=== PATIENT | female | born 1960 | race Caucasian/White ===

== ENCOUNTER 2016-12-09 11:30 | Inpatient (IN) | payer MEDICARE, MEDICAID ==
[2016-12-09 11:56] LABS: Oxyhemoglobin 90.7 % (94.0-97.0); Sodium 139 mmol/L (135-148)
[2016-12-09 11:57] LABS: Modified Allen's Test POSITIVE; Vent NO
[2016-12-09 11:58] LABS: Mode RA
[2016-12-09] MEDS ORDERED: Lorazepam 2 MG/ML VIAL ONE ×2 (12:02→13:18)
[2016-12-09 12:12] LABS: Bilirubin Negative (Negative); Blood, Urine Negative (Negative); Glucose, Urine (Dipstick) Negative (Negative); Ketone, Urine Negative (Negative); Nitrite Negative (Negative); Protein, Urine (Dipstick) 300 mg/dL (Neg-Trace); Urobilinogen 0.2 mg/dL (0.2-1.0)
[2016-12-09 12:14] LABS: Bacteria/HPF None Seen HPF (None Seen); Hyaline Casts/LPF 0-3 HYALINE CAST LPF (0-3 Hyaline); RBC/HPF 0-3 HPF (0-3); Squamous Epithelial 0-3 HPF (0-3); WBC/HPF None Seen HPF (0-3)
[2016-12-09 12:15] LABS: PTT 27.6 SEC (22.9-36.1)
--- NOTE | 2016-12-09 12:18 | RAD ---
SINGLE VIEW OF THE CHEST: Comparison: 10-16-16 History: Seizures, diabetes, hypertension, congestive heart failure, CVA. Altered mental status. FINDINGS: Single view of the chest shows a normal sized cardiomediastinal silhouette. Evaluation of the lower right thorax is limited as the patient's hand overlies the chest. There is no evidence of consolidat ion, mass, or pleural effusion. A cardiac monitoring device projects over the upper chest. IMPRESSION: No evidence of acute cardiopulmonary disease. POS: [facility]
[2016-12-09 12:19] LABS: Hematocrit 39.3 % (36.0-47.0); Mean Platelet Volume 7.3 fL (7.4-10.4); Red Blood Cell (RBC) Count 4.22 mill/uL (4.20-5.40); White Blood Cell (WBC) Count 24.5 thou/uL (4.8-10.8)
[2016-12-09 12:21] LABS: Amphetamine Not Detected (NotDetected); Methadone Not Detected (NotDetected); Methamphetamine Not Detected (NotDetected)
[2016-12-09 12:29] LABS: Lactic Acid - Sepsis 1.9 mmol/L (0.5-2.2)
[2016-12-09 12:34] LABS: Band 9 % (5-11); Neutrophil 82 % (42-75)
[2016-12-09 12:36] LABS: CK (CPK) 28 U/L (29-168); Lipase 17 U/L (8-78)
[2016-12-09 12:40] LABS: Troponin I Less than 0.010 ng/mL (< 0.028)
[2016-12-09 12:43] LABS: ALT (SGPT) 7 U/L (8-55); AST (SGOT) 12 U/L (5-34); Acetaminophen Less than 6.0 mcg/mL (10.0-30.0); Alkaline Phosphatase 60 U/L (40-150); Anion Gap 14 mmol/L (10-20); BUN (Urea Nitrogen) 39 mg/dL (9.8-20.1); Bilirubin, Total 0.3 mg/dL (0.2-1.2); Calc. Creatinine Clearance 0 mL/min (70-130); Calcium 9.9 mg/dL (7.8-10.44); Carbon Dioxide 29 mmol/L (22-29); Chloride 100 mmol/L (98-107); Estimated GFR-MDRD 58; Globulin 3.6 g/dL (2.4-3.5); Protein, Total 7.2 g/dL (6.0-8.3); Salicylate Less than 8.0 mg/dL (15.0-30.0)
--- NOTE | 2016-12-09 12:58 | CT ---
CT BRAIN WITHOUT CONTRAST: Date: 12/09/16 HISTORY: Altered mental status. FINDINGS: Comparison made with exam of 11/03/16. A small area of encephalomalacia in the posteromedial aspect of the left parietal lobe is again seen likely due to old infarction. No evidence of acute infarct, hemorrhage, midline shift, or abnormal extra-axial fluid collections are noted. The ventricular size is stable and the basilar cisterns are patent. The bony calvarium is intact. The visualized paranasal sinuses are well aerated. IMPRESSION: No CT evidence of acute intracranial process. POS: [facility]
[2016-12-09] MEDS ORDERED: Fosphenytoin Sodium 1,500 MG in Sodium Chloride 0.9% 100 ML IVPB SCH (13:30)
[2016-12-09] MEDS ORDERED: Dextrose 50% Abboject 50 ML SYRINGE ONE (13:55)
[2016-12-09] MEDS ORDERED: Dextrose 50% Abboject 50 ML SYRINGE SLOW IVP PRN (14:56)
[2016-12-09] MEDS ORDERED: Milk Of Magnesia 30 ML UDCUP PO PRN (14:56)
[2016-12-09] MEDS ORDERED: Ondansetron ODT 4 MG TAB PO PRN (14:56)
[2016-12-09] MEDS ORDERED: Senokot 8.6 MG TAB PO PRN (14:56)
[2016-12-09] MEDS ORDERED: Dextrose 5% in Water 1,000 ML IV PRN (14:56)
[2016-12-09] MEDS ORDERED: Acetaminophen 325 MG TAB PO PRN (14:56)
[2016-12-09] MEDS ORDERED: Calcium Carbonate 500 MG ChewTAB PO PRN (14:56)
[2016-12-09] MEDS ORDERED: Loratadine 10 MG TAB PO PRN (14:56)
[2016-12-09] MEDS ORDERED: Diabetic Tussin 200 MG/10 ML UDCUP PO PRN (14:56)
[2016-12-09] MEDS ORDERED: Mag-Al 1200 mg/1200 mg/30 ML UDCUP PO PRN (14:56)
[2016-12-09] MEDS ORDERED: Ondansetron HCl/PF 4 MG/2 ML Vial IVP PRN (14:56)
[2016-12-09] MEDS ORDERED: Nitroglycerin 0.4 MG TAB (25 Tab Bottle) SL PRN (14:56)
[2016-12-09] MEDS ORDERED: Eucerin (Mineral Oil/Petrolatum,White) 30 gm Jar TOP PRN (14:56)
[2016-12-09] MEDS ORDERED: Sodium Chloride 0.65% Nasal 44 ML BOT EA NARE PRN (14:56)
[2016-12-09] MEDS ORDERED: Loperamide HCl 2 MG CAP PO PRN (14:56)
--- NOTE | 2016-12-09 15:12 | HP ---
PRIMARY CARE PHYSICIAN: Shikha Lennon, Family Nurse Practitioner. REASON FOR ADMISSION: Acute metabolic encephalopathy. HISTORY OF PRESENT ILLNESS: A 56-year-old female who has multiple medical problems including diabet es type 2 on insulin, hypertension, history of CVA and seizure disorder, who is appearing older than her stated age, who was brought to the emergency room for altered mental status. This patient is not able to provide any history at this point because she is completely altered, but her daughter who is present at bedside, who provided history. The patient lives with her daughter and she reported to me that last night her blood sugar was fine and it was a little bit on the higher side around 200 number and she gave her regular dose of insuli n, which she normally takes during night time. Before bedtime around 11:00, her blood sugar was sti ll above 200. This morning when patient's daughter woke up and she went to patient's room to check on her, she was completely unresponsive. Her body was cold and she was not responsive and that is w hy she called the paramedics. Paramedics came to her home and her blood sugar was initially 49 and it dropped to 20. Paramedics t ried to get IV access, but her IV access was not possible and that is why they did intraosseous in h er left leg and patient was given D50. Subsequently, patient was initially planned to go to [facility] Emergency Room, but as paramedics suspected seizure type of activity and maybe stroke and that is why they lifeline to our emergency room. In our emergency room, patient was hypothermic. Her temperature was 91.5, required Kimber Hugger. Amadou mendez was hypertensive in the emergency room. She was completely encephalopathic. She was opening eyes and she was clenching her teeth and she was keeping her both hands tightly closed without any g eneralized tonic-clonic activity. Patient was also found with leukocytosis and there was concern of underlying sepsis and that is why hendrickson culture was done and the patient was started on broad spectru m antibiotic therapy. Here in the emergency room, the patient is more hypertensive. Her blood suga r is stabilized. At this point, the patient is being admitted to IMCU for close monitoring. PAST MEDICAL HISTORY: Hypertension, dyslipidemia, diabetes type 2, insulin requiring, history of se izure disorder on Keppra, history of CVA with left internal capsular infarct, osteoarthritis, diabet ic neuropathy on high dose of Neurontin therapy, COPD, tobacco abuse disorder, questionable history of CHF, history of supraventricular tachycardia required ablation. PAST SURGICAL HISTORY: Bilateral carotid artery surgery, hysterectomy, uterus tear repair, bladder tuck, appendicectomy, , ablation for SVT, event monitor recorder placement on left chest wa ll. PAST PSYCHIATRIC HISTORY: Anxiety, depression. SOCIAL HISTORY: The patient lives with her daughter. She smokes about 1 pack per day. She denies any alcohol or other illicit drug abuse. She is able to ambulate by herself and able to do routine activity. FAMILY HISTORY: No strong family history of premature coronary artery disease, stroke or cancer. D iabetes, hypertension, and COPD runs among several family members. ALLERGIES: MORPHINE. CURRENT HOME MEDICATIONS: TriCor 145 mg p.o. daily, metformin 500 mg p.o. b.i.d., lisinopril 5 mg p .o. daily, Plavix 75 mg p.o. daily, Lasix 20 mg p.o. as needed, gabapentin 600 mg 3 times daily, Dil antin 100 mg 2 tablets in the morning, one tablet in the noon, and 2 tablets at bedtime, Symbicort 1 puff inhalation b.i.d. REVIEW OF SYSTEMS: All review of systems tried to review with the patient, but unable to review bec ause of encephalopathy. PHYSICAL EXAMINATION: VITAL SIGNS: Currently, blood pressure 188/74, pulse 98, respiratory rate 26, temperature 98.4 and saturation 98% on room air. Weight 81.6 kilograms. GENERAL: Patient is currently arousable. She awakes she opens her high, but she is not following a ny command. She is breathing on room air and saturating normal. She is not in respiratory distress . HEAD: Normocephalic, atraumatic. EYES: Pupils round, reactive to light. Extraocular muscle intact. ENT: Oropharynx within normal limits. No tongue bite. Moist mucous membranes. No oral lesions. No pharyngeal erythema, no exudate. NECK: Supple. No meningeal signs of irritation, no JVD, no thyromegaly, no carotid bruits. LUNGS: Clear to auscultation without any rhonchi or rales. CARDIAC: S1, S2 regular without any murmur. ABDOMEN: Obesity present. Bowel sounds present. Nontender, nondistended. No organomegaly, no mas s, no suprapubic tenderness. BACK: Unremarkable. No CVA tenderness. EXTREMITIES: Upper extremity: Patient does have tremors in both upper extremities. Does not look like that is seizure type of activity. Passive movement of all joints are normal. Lower extremity, no edema. Good peripheral pulsation. Intraosseous IV access in left leg. NEUROLOGIC: The patient follows commands. She is encephalopathic, so detailed neurologic examinati on is not possible. SKIN: No skin rash. PSYCHIATRIC: Unable to assess at this point. HEMATOLOGICAL SYSTEM: No lymphadenopathy. SIGNIFICANT LABS AND IMAGIN. EKG showing sinus tachycardia. CT brain based on my review, no acute intracranial process, old left infarct noted. 2. CBC: WBC 24.5, hemoglobin 12.7, platelet 565 with a left shift and bandemia. INR 1.0. ABG: p H 7.38, bicarbonate 27.7, CO2 48.0, O2 65. 3. BMP: Sodium 139, potassium 4.3, chloride 100, carbon dioxide 29, BUN 39, creatinine 0.99, gluco se 127, calcium 9.9. 4. LFT: AST 12, ALT 7, alkaline phosphatase 60, albumin 3.6, lipase 17. TSH 1.24. Prolactin 15. BNP 116.2. Cardiac enzymes negative. CK 28. Urinalysis normal. Urine drug screen negative. Ser um drug screen negative. ASSESSMENT AND PLAN/IMPRESSION: 1. Acute metabolic encephalopathy. This patient was hypoglycemic at home at 49 early in the [facility] and when paramedics found him, at that time blood sugar was in 20s. Duration of hypoglycemia is n ot certain because patient was found this morning hypoglycemic by her daughter. Currently, the charisse ent is encephalopathic, may be because of prolonged effect of hypoglycemia. Another possibility is the patient does have leukocytosis, bandemia and hypothermia, which may be related with possible sep sis, but patient does not have any obvious source of infection with a normal urine, normal chest x-r ay, normal lactic acid, so infectious source is less likely, but patient has already had hendrickson culture done and patient has already received broad spectrum antibiotic therapy. This patient has a tremor activity maybe shivering because of hypothermia, does not look like any seizure type of activity gi patrick normal Prolactin, normal CK. At this point, patient will be admitted to IMCU for close monitori ng. 2. ABG showed hypercarbia and hypoxia, but when I saw this patient, patient's saturation is normal on room air. This may be related with her less breathing from encephalopathy from hypoglycemia. At this point, the patient is stabilized from that problem. We will closely monitor. This patient do es not need any intubation at this point. 3. Hypoglycemia. That problem is resolved after dextrose given through intraosseously and subseque ntly IV access obtained in our emergency room. This patient's blood sugar is 127. She was given in sulin last night, so we will watch for any recurrent hypoglycemia. We will avoid any insulin produc t for now. We will only use Accu-Chek a.c. and at bedtime and if her blood sugar was very high, the n we will consider using sliding scale insulin. 4. Hypothermia, likely related with hypoglycemia prolonged. May be related with sepsis that is als o possible, but more towards hypoglycemia contributing hypothermia rather an infection. The patient is requiring Kimber Hugger. We are keeping her in ICU and we are giving her broad spectrum antibioti c therapy. 5. Seizure disorder. The patient is not sure whether she is on Dilantin versus Keppra, but based o n our Neurology recommendation, the patient is on Keppra, which we will continue while in hospital. At this point, the patient does not have any seizure activity. 6. Diabetes type 2 as mentioned above. Because of hypoglycemia, we will avoid any diabetic medicat ion and scheduled insulin. 7. Chronic obstructive pulmonary disease. We will continue DuoNeb q.6 hourly p.r.n., Dulera 2 puff s inhalation b.i.d. 8. Tobacco abuse disorder. We will provide smoking cessation counseling and patient is more alert. 9. Hypertension. Patient's blood pressure was going up. We will use p.r.n. hydralazine, labetalol and will continue with lisinopril 5 mg p.o. daily and Lasix 20 mg p.o. daily. 10. Dyslipidemia. We will continue Lipitor 40 mg p.o. at bedtime, TriCor 145 mg p.o. daily. 11. History of cerebrovascular accident. We will continue with aspirin 81 mg p.o. daily, Plavix 75 mg p.o. daily along with statin therapy and blood pressure medication. Patient will need PT, OT be fore discharge. 12. Peripheral neuropathy. The patient is on high dose of gabapentin after verifying her home dose . We will continue with gabapentin as per home dosage. When the patient is more alert, able to phil e p.o. medication. 13. Deep venous thrombosis prophylaxis. Lovenox 40 mg subQ daily. 14. Gastrointestinal prophylaxis, Protonix 40 mg p.o. or IV daily. 15. Code status: The patient is FULL CODE. Patient's daughter is surrogate decision maker. Disposition plan based on clinical course. If the patient's mental function does not improve, then we will consider Neurology evaluation as well. Because patient is being admitted in ICU, pulmonary will see her as well.
[2016-12-09 16:24] LABS: Oxyhemoglobin 94.9 % (94.0-97.0); Sodium 139 mmol/L (135-148)
[2016-12-09 16:25] LABS: Mode NC; Vent NO
[2016-12-09] MEDS: Dextrose 5 % And 0.9 % NaCl 1,000 ML IV SCH (17:12)
[2016-12-09] MEDS: Mometasone/Formoterol 120 PUFF INHALER INH SCH (18:20)
[2016-12-09] MEDS ORDERED: Acetaminophen 1,000 MG in Premix Bag 1 BAG IVPB SCH (18:45)
[2016-12-09] MEDS: Famotidine/PF 20 mg/2ml Vial SLOW IVP SCH (21:04)
[2016-12-09] MEDS: Atorvastatin Calcium 40 MG TAB PO SCH (21:04)
[2016-12-09] MEDS: Cefepime 2 GM in Sodium Chloride 0.9% 100 ML IVPB SCH (22:10)
[2016-12-10] MEDS: Vancomycin HCl 1.5 GM in Sodium Chloride 0.9% 250 ML 300 ML IVPB SCH ×2 (00:07→13:07)
--- NOTE | 2016-12-10 00:08 | CON ---
DATE OF CONSULTATION: 12/09/2016 CONSULTING PHYSICIAN: Hospitalist Service. IMPRESSION: 1. Focal status epilepticus. 2. Prior left hemispheric stroke. 3. Sepsis. PLAN: 1. Keppra 2000 mg IV now. 2. Increase maintenance dose to 1000 mg twice a day. 3. Versed 2 mg IV push now. Ms. Zamarripa is a 56-year-old woman with a known history of seizures. She was admitted with sepsis an d recurrent seizures. Reportedly, she has seizures every day. She was given 1500 mg of Dilantin in the emergency room, but has failed to respond. I was called to give a neurologic opinion. PHYSICAL EXAMINATION: GENERAL: She appears to be awake, but she is primarily looking off to the left. She was unable to speak. Her right hand is clenched and arm is flexed. She does not have any rhythmic movements in t he leg, but there is some slight rhythmic nature to her arm. No focal twitching of the face was pamela reciated. VITAL SIGNS: Showed T-max of 100.4. LABORATORY STUDIES: Remarkable for white count of 24.5, platelet count of 565. Chemistry panel was unremarkable. CT of the brain did not show any acute abnormalities. SUMMARY: The patient appears to be in focal status epilepticus. Hopefully, we can break seizures w ith current medication regimen.
[2016-12-10 05:02] LABS: #Lymphocytes 2.8 thou/uL (1.20-3.40); #Monocytes 1.1 thou/uL (0.11-0.59); #Neutrophils 10.1 thou/uL (1.40-6.50); %Basophils 0.2 % (0.0-1.0); %Eosinophils 0.2 % (0.0-10.0); %Lymphocytes 20.1 % (21.0-51.0); %Monocytes 7.5 % (0.0-10.0); Hematocrit 30.1 % (36.0-47.0); Mean Platelet Volume 7.6 fL (7.4-10.4); Red Blood Cell (RBC) Count 3.22 mill/uL (4.20-5.40)
[2016-12-10 05:21] LABS: ALT (SGPT) Less than 7 U/L (8-55); AST (SGOT) 11 U/L (5-34); Alkaline Phosphatase 44 U/L (40-150); Anion Gap 12 mmol/L (10-20); BUN (Urea Nitrogen) 36 mg/dL (9.8-20.1); Bilirubin, Total 0.3 mg/dL (0.2-1.2); Calc. Creatinine Clearance 83 mL/min (70-130); Calcium 8.6 mg/dL (7.8-10.44); Carbon Dioxide 24 mmol/L (22-29); Chloride 108 mmol/L (98-107); Estimated GFR-MDRD 50; Globulin 2.8 g/dL (2.4-3.5); Protein, Total 5.6 g/dL (6.0-8.3)
[2016-12-10] MEDS: Mometasone/Formoterol 120 PUFF INHALER INH SCH ×2 (06:55→19:35)
[2016-12-10] MEDS: Dextrose 5 % And 0.9 % NaCl 1,000 ML IV SCH (08:45)
[2016-12-10] MEDS: Enoxaparin Sodium 40 MG/0.4 ML SYRINGE SC SCH (09:12)
[2016-12-10] MEDS: Famotidine/PF 20 mg/2ml Vial SLOW IVP SCH ×2 (09:13→20:41)
[2016-12-10] MEDS: Clopidogrel Bisulfate 75 MG TAB PO SCH (09:16)
[2016-12-10] MEDS: Lisinopril 5 MG TAB PO SCH (09:16)
[2016-12-10] MEDS: Fenofibrate Nanocrystallized 145 MG TAB PO SCH (09:16)
[2016-12-10] MEDS ORDERED: levETIRAcetam In NaCl (Iso-Os) 1,000 MG in Premix Bag 1 BAG IVPB SCH ×6 (09:51→13:15)
[2016-12-10] MEDS: Cefepime 2 GM in Sodium Chloride 0.9% 100 ML IVPB SCH ×2 (10:03→20:41)
--- NOTE | 2016-12-10 13:58 | CON ---
DATE OF CONSULTATION: 12/10/2016 Ms. Zamarripa is a 56-year-old female with diabetes. She presented after being found down at home. Tia ramsey had a blood sugar in the 20s. She has been slow to awaken. She was admitted to the Intermediate Care Unit. She was also hypother skyler on arrival. She is slowly improving. She is unable to give an accurate history. She is minimally verbal. She did answer that she was in the hospital. When I asked her if she had ever had low sugar before she slowly said yes. PAST MEDICAL HISTORY: 1. Hypertension. 2. Diabetes. 3. History of seizures and a CVA in the past. 4. History of degenerative arthritis. 5. History of diabetic neuropathy. 6. Reported history of obstructive lung disease. 7. History of tobacco use. 8. History of supraventricular tachycardia with ablation. 9. History of carotid endarterectomies. 10. Status post hysterectomy. 11. History of a uterine tear repair. 12. History of bladder suspension. 13. History of appendectomy. SOCIAL HISTORY: Still smoking a pack a day. She is not a drinker. FAMILY HISTORY: Family history of diabetes, lung disease and hypertension. REVIEW OF SYSTEMS: Otherwise, not obtainable. ALLERGIES: There is a reported allergy to MORPHINE. MEDICATIONS PRIOR TO ADMISSION: Prior to admission she was on Tricor, metformin, lisinopril, Plavix , Lasix, gabapentin, Dilantin, Symbicort. PHYSICAL EXAMINATION: GENERAL: She moves all of her extremities. VITAL SIGNS: She is afebrile, heart rate 87. Blood pressure 194/82, respiratory rate in the teens. HEENT: Pupils are sluggishly reactive. Sclerae is anicteric. Extraocular movements grossly appear to be full. NECK: Supple. LUNGS: Remarkable for clear anteriorly. HEART: Regular rhythm. ABDOMEN: Soft, no guarding or tenderness. EXTREMITIES: With asymmetry. LABORATORY DATA: White count 14, hemoglobin 9.7, platelets 415. Sodium 140, potassium 3.8, chlorid e 108, bicarbonate 24, BUN 36, creatinine 1.1, glucose 169. Liver enzymes are normal. Albumin is 2 .8. Urinalysis shows 300 mg per deciliter of protein. IMPRESSION: 1. Hypoglycemia, likely for a prolonged period and likely the cause of her encephalopathy. 2. History of seizure disorder. 3. Probable diabetic nephropathy with proteinuria. 4. Hypoalbuminemia secondary to #3. 5. Diabetic peripheral neuropathy. 6. Hypertension. 7. Hypothermia on admission, it has improved. Blood cultures are negative. It is unlikely she is septic. PLAN: Continue supportive care. Once she is neurologically better she could be transferred to the stroke unit.
--- NOTE | 2016-12-10 14:40 | PDOC.PN ---
- Subjective Encounter Start Date: 12/10/16 Encounter Start Time: 14:36 Subjective: pt much better as per nursing staff.more awake. -: she follows simple commands,moves all over the bed - Objective Resuscitation Status: Resuscitation Status FULL:Full Resuscitation MAR Reviewed: Yes Vital Signs & Weight: Vital Signs (12 hours) Temp Pulse Resp BP BP Pulse Ox 12/10/16 12:00 99.3 F 87 18 194/82 H 99 12/10/16 11:08 87 194/82 H 12/10/16 09:16 86 12/10/16 07:51 99.5 F 86 20 154/67 H 100 12/10/16 07:15 99.5 F 80 20 99 12/10/16 06:55 84 18 100 12/10/16 04:00 99.7 F H 88 18 124/69 99 Weight Admit Weight 209 lb 8 oz Weight 209 lb 8 oz I&O: 12/09/16 12/10/16 12/11/16 06:59 06:59 06:59 Intake Total 1200 0 Output Total 1850 Balance -650 0 Result Diagrams: 12/11/16 09:39 12/11/16 09:39 Additional Labs: Accuchecks 12/10/16 12/10/16 12/10/16 12:34 10:05 03:48 POC Glucose 188 H 169 H 106 12/09/16 12/09/16 12/09/16 23:49 20:17 16:06 POC Glucose 95 91 98 12/09/16 14:48 POC Glucose 99 Microbiology 12/09/16 13:40 Venous blood - Left Hand Blood Culture - Preliminary Specimen has been received and culture in progress. No Growth to date. 12/09/16 13:07 Venous blood - Left Arm Blood Culture - Preliminary Specimen has been received and culture in progress. No Growth to date. Laboratory Tests 12/09/16 12/09/16 12/09/16 12:01 12:01 12:01 WBC 24.5 H Creatinine Troponin I Less than 0.010 TSH 3rd Generation 1.2418 Prolactin 12/09/16 12/09/16 12/10/16 12:01 12:01 04:22 WBC Creatinine 0.99 1.11 H Troponin I TSH 3rd Generation Prolactin 15.00 12/10/16 04:22 WBC 14.0 H Creatinine Troponin I TSH 3rd Generation Prolactin Phys Exam - Physical Examination Constitutional: NAD fidgety HEENT: PERRLA, moist MMs, sclera anicteric, oral pharynx no lesions Neck: no nodes, no JVD, supple, full ROM Respiratory: no wheezing, no rales, no rhonchi, clear to auscultation bilateral Cardiovascular: RRR, no significant murmur Gastrointestinal: soft, non-tender, no distention, positive bowel sounds Musculoskeletal: no edema, pulses present Neurological: non-focal, moves all 4 limbs Deviation from normal: responds to simple questions Skin: no rash Dx/Plan (1) Status epilepticus Code(s): G40.901 - EPILEPSY, UNSP, NOT INTRACTABLE, WITH STATUS EPILEPTICUS Status: Acute (2) Sepsis Code(s): A41.9 - SEPSIS, UNSPECIFIED ORGANISM Status: Suspected (3) RADHA (acute kidney injury) Code(s): N17.9 - ACUTE KIDNEY FAILURE, UNSPECIFIED Status: Acute (4) Hypoglycemia Code(s): E16.2 - HYPOGLYCEMIA, UNSPECIFIED Status: Resolved (5) Metabolic encephalopathy Code(s): G93.41 - METABOLIC ENCEPHALOPATHY Status: Acute Comment: likley due to seizures and hypoglycemia (6) Chronic obstruct airways disease Status: Chronic (7) Chronic respiratory failure with hypoxia Code(s): J96.11 - CHRONIC RESPIRATORY FAILURE WITH HYPOXIA Status: Chronic (8) Diabetes type 2, uncontrolled Code(s): E11.65 - TYPE 2 DIABETES MELLITUS WITH HYPERGLYCEMIA Status: Chronic Qualifiers: Diabetes mellitus complication status: with hyperglycemia (9) Dyslipidemia Code(s): E78.5 - HYPERLIPIDEMIA, UNSPECIFIED Status: Chronic (10) Seizure disorder Code(s): G40.909 - EPILEPSY, UNSP, NOT INTRACTABLE, WITHOUT STATUS EPILEPTICUS Status: Chronic (11) Tobacco abuse Code(s): Z72.0 - TOBACCO USE Status: Chronic (12) Hypothermia Code(s): T68.XXXA - HYPOTHERMIA, INITIAL ENCOUNTER Status: Acute (13) H/O: CVA (cerebrovascular accident) Code(s): Z86.73 - PRSNL HX OF TIA (TIA), AND CEREB INFRC W/O RESID DEFICITS Status: Chronic Comment: on ASA,Plavix,statin - Plan DVT proph w/SCDs Load w Keppra Iv the 1000 mg IV bid per neurology recs. -: Cont broad spectrum ABx for fever.follow Cx,labs etc. -: Blood sugar better. on D5 1/2 NS.monitor. cont to hold metformin. -: Hold Lasix d/t RADHA.recheck in am -: consult palliative care to address family dynamics and MPOA * .So far, Pt expected to recover and be able to make her own decisions. will wait * am labs * Review of Systems - Review of Systems Other: can not be reliably obtainable as pt is still somewhat deliriuos - Medications/Allergies Allergies/Adverse Reactions: Allergies Allergy/AdvReac Type Severity Reaction Status Date / Time morphine Allergy Verified 10/15/16 23:44 Penicillins Allergy Verified 12/09/16 15:46 Medications: Current Medications Acetaminophen (Tylenol) 650 mg PO Q4H PRN PRN Reason: Headache/Fever or Pain Al Hydroxide/Mg Hydroxide (Maalox) 30 ml PO Q6H PRN PRN Reason: Heartburn or Indigestion Albuterol/Ipratropium (Duoneb) 3 ml NEB [id number] PRN PRN Reason: SOB &/or Wheezing Aspirin (Aspirin Chewable) 81 mg PO DAILY [facility] Last Admin: 12/10/16 09:17 Dose: Not Given Atorvastatin Calcium (Lipitor) 40 mg PO HS [facility] Last Admin: 12/09/16 21:04 Dose: Not Given Calcium Carbonate (Tums) 1,000 mg PO Q4H PRN PRN Reason: Heartburn or Indigestion Clopidogrel Bisulfate (Plavix) 75 mg PO DAILY [facility] Last Admin: 12/10/16 09:16 Dose: Not Given Dextrose/Water (Dextrose 50%) 25 gm SLOW IVP PRN PRN PRN Reason: Hypoglycemia Enoxaparin Sodium (Lovenox) 40 mg SC 0900 [facility] Last Admin: 12/10/16 09:12 Dose: 40 mg Famotidine (Pepcid) 20 mg SLOW IVP Q12HR [facility] Last Admin: 12/10/16 09:13 Dose: 20 mg Fenofibrate (Tricor) 145 mg PO DAILY [facility] Last Admin: 12/10/16 09:16 Dose: Not Given Glucagon (Glucagon) 1 mg IM PRN PRN PRN Reason: Hypoglycemia Guaifenesin (Robitussin Sf) 200 mg PO Q4H PRN PRN Reason: Cough Hydralazine HCl (Apresoline) 10 mg SLOW IVP Q4H PRN PRN Reason: Systolic BP > 180 Last Admin: 12/10/16 11:08 Dose: 10 mg Cefepime HCl 2 gm/ Sodium (Chloride) 100 mls @ 200 mls/hr IVPB Q12HR [facility] Last Admin: 12/10/16 10:03 Dose: 100 mls Dextrose/Sodium Chloride (D5 0.9% Ns) 1,000 mls @ 75 mls/hr IV .[id number] [facility] Last Admin: 12/10/16 08:45 Dose: 1,000 mls Dextrose/Water (D5w) 1,000 mls @ 0 mls/hr IV .Q0M PRN; As Directed PRN Reason: Hypoglycemia Levofloxacin 500 mg/ Device 100 mls @ 100 mls/hr IVPB Q24HR [facility] Last Admin: 12/09/16 17:12 Dose: 100 mls Vancomycin HCl 1.5 gm/ Sodium (Chloride) 300 mls @ 200 mls/hr IVPB 0100,1300 [facility] Last Admin: 12/10/16 13:07 Dose: 300 mls Levetiracetam 1,000 mg/ Device 100 mls @ 200 mls/hr IVPB BID [facility] Levetiracetam 1,000 mg/ Device 100 mls @ 200 mls/hr IVPB NOW [facility] Stop: 12/10/16 15:15 Last Admin: 12/10/16 12:00 Dose: 100 mls Insulin Human Lispro (Humalog) 0 units SC .MILD SLIDING SCALE PRN PRN Reason: Mild Correctional Scale Labetalol HCl (Normodyne) 20 mg SLOW IVP Q4H PRN PRN Reason: Systolic BP > 180 Lisinopril (Zestril) 5 mg PO DAILY [facility] Last Admin: 12/10/16 09:16 Dose: Not Given Loperamide HCl (Imodium) 2 mg PO PRN PRN PRN Reason: Diarrhea/Loose Stools Loratadine (Claritin) 10 mg PO DAILYPRN PRN PRN Reason: Sinus Symptoms Magnesium Hydroxide (Milk Of Magnesium) 30 ml PO DAILYPRN PRN PRN Reason: Constipation Mineral Oil/White Petrolatum (Eucerin Cream) 0 gm TOP BIDPRN PRN PRN Reason: Dry Skin Miscellaneous Medication (Pharmacy To Dose) 1 each IVPB PRN PRN PRN Reason: Pharmacy to dose Mometasone Furoate/Formoterol Fumar (Dulera 200 Mcg/5 Mcg Inhaler) 2 puff INH BID-RT [facility] Last Admin: 12/10/16 06:55 Dose: 2 puff Nitroglycerin (Nitrostat) 0.4 mg SL Q5MIN PRN PRN Reason: Chest Pain Ondansetron HCl (Zofran Odt) 4 mg PO Q6H PRN PRN Reason: Nausea/Vomiting Ondansetron HCl (Zofran) 4 mg IVP Q6H PRN PRN Reason: Nausea/Vomiting Senna (Senokot) 2 tab PO HSPRN PRN PRN Reason: Constipation Sodium Chloride ([place] Nasal [place] 0.65%) 0 ml EA NARE QIDPRN PRN PRN Reason: Nasal Congestion
[2016-12-10] MEDS: Gabapentin 400 MG CAP PO SCH ×2 (15:45→20:35)
[2016-12-10] MEDS: Sodium Chloride 0.9% 1,000 ML IV SCH (16:24)
[2016-12-10] MEDS: Atorvastatin Calcium 40 MG TAB PO SCH (20:35)
[2016-12-10] MEDS: levETIRAcetam In NaCl (Iso-Os) 1,000 MG in Premix Bag 1 BAG IVPB SCH ×2 (20:41)
[2016-12-10] MEDS ORDERED: Non-Formulary Item 1 EACH (Budesonide-Formoterol [Symbicort 160-4.5] 1 PUFF) INH SCH (21:00)
[2016-12-11 00:46] LABS: Vancomycin, Trough 22.1 ug/mL
[2016-12-11] MEDS: Vancomycin HCl 1.5 GM in Sodium Chloride 0.9% 250 ML 300 ML IVPB SCH (01:22)
[2016-12-11] MEDS: Vancomycin HCl 1.25 GM in Sodium Chloride 0.9% 250 ML 250 ML IVPB SCH ×2 (02:05→14:06)
[2016-12-11] MEDS: Famotidine/PF 20 mg/2ml Vial SLOW IVP SCH ×2 (07:36→20:29)
[2016-12-11] MEDS: Clopidogrel Bisulfate 75 MG TAB PO SCH (07:36)
[2016-12-11] MEDS: Lisinopril 5 MG TAB PO SCH (07:37)
[2016-12-11] MEDS: Fenofibrate Nanocrystallized 145 MG TAB PO SCH (07:37)
[2016-12-11] MEDS: Gabapentin 400 MG CAP PO SCH ×3 (07:37→20:29)
[2016-12-11] MEDS: Cefepime 2 GM in Sodium Chloride 0.9% 100 ML IVPB SCH ×2 (08:33→20:28)
[2016-12-11] MEDS: Enoxaparin Sodium 40 MG/0.4 ML SYRINGE SC SCH (08:37)
[2016-12-11] MEDS ORDERED: Furosemide 40 MG TAB PO SCH (09:00)
[2016-12-11] MEDS: levETIRAcetam In NaCl (Iso-Os) 1,000 MG in Premix Bag 1 BAG IVPB SCH ×4 (09:25→20:28)
[2016-12-11 09:46] LABS: #Eosinphils 0.1 thou/uL (0.0-0.7); #Lymphocytes 1.8 thou/uL (1.20-3.40); #Monocytes 0.9 thou/uL (0.11-0.59); %Basophils 0.2 % (0.0-1.0); %Eosinophils 1.1 % (0.0-10.0); %Lymphocytes 16.7 % (21.0-51.0); Hematocrit 29.7 % (36.0-47.0); Mean Platelet Volume 7.8 fL (7.4-10.4); Red Blood Cell (RBC) Count 3.17 mill/uL (4.20-5.40); White Blood Cell (WBC) Count 10.8 thou/uL (4.8-10.8)
[2016-12-11 10:12] LABS: Anion Gap 15 mmol/L (10-20); BUN (Urea Nitrogen) 24 mg/dL (9.8-20.1); Calc. Creatinine Clearance 89 mL/min (70-130); Carbon Dioxide 21 mmol/L (22-29); Chloride 111 mmol/L (98-107); Estimated GFR-MDRD 54
[2016-12-11] MEDS: Sodium Chloride 0.9% 1,000 ML IV SCH (11:38)
--- NOTE | 2016-12-11 12:29 | PDOC.PN ---
- Subjective Encounter Start Date: 12/11/16 Encounter Start Time: 12:27 Subjective: feels better.able to temm her name and place,lyudmila's name -: no overnight events - Objective Resuscitation Status: Resuscitation Status FULL:Full Resuscitation MAR Reviewed: Yes Vital Signs & Weight: Vital Signs (12 hours) Temp Pulse Resp BP BP Pulse Ox 12/11/16 12:00 98.7 F 89 16 181/63 H 100 12/11/16 09:25 91 12/11/16 08:00 99.0 F 91 12 97 12/11/16 07:37 91 12/11/16 07:35 97.1 F L 91 12 139/57 L 97 12/11/16 04:00 99.8 F H 92 22 H 170/68 H 98 12/11/16 02:00 159/62 H 12/11/16 01:20 87 195/72 H 12/11/16 01:02 97 Weight Admit Weight 209 lb 8 oz Weight 211 lb 1.6 oz I&O: 12/10/16 12/11/16 12/12/16 06:59 06:59 06:59 Intake Total 1200 2742 Output Total 1850 1850 Balance -650 892 Result Diagrams: 12/11/16 09:39 12/11/16 09:39 Additional Labs: Accuchecks 12/11/16 12/11/16 12/11/16 12:01 08:05 04:03 POC Glucose 224 H 226 H 227 H 12/10/16 12/10/16 12/10/16 23:17 20:18 16:11 POC Glucose 227 H 247 H 184 H 12/10/16 12:34 POC Glucose 188 H Phys Exam - Physical Examination Constitutional: NAD working w MACHINE LOADER HEENT: PERRLA, moist MMs, sclera anicteric, oral pharynx no lesions Neck: no nodes, no JVD, supple, full ROM Respiratory: no wheezing, no rales, no rhonchi, clear to auscultation bilateral Cardiovascular: RRR, no significant murmur Gastrointestinal: soft, non-tender, no distention, positive bowel sounds Musculoskeletal: no edema, pulses present Neurological: non-focal, normal sensation, moves all 4 limbs Psychiatric: normal affect Deviation from normal: orineted to self and place at least Skin: no rash Dx/Plan (1) Status epilepticus Code(s): G40.901 - EPILEPSY, UNSP, NOT INTRACTABLE, WITH STATUS EPILEPTICUS Status: Acute (2) Sepsis Code(s): A41.9 - SEPSIS, UNSPECIFIED ORGANISM Status: Suspected (3) Hypoglycemia Code(s): E16.2 - HYPOGLYCEMIA, UNSPECIFIED Status: Resolved (4) Metabolic encephalopathy Code(s): G93.41 - METABOLIC ENCEPHALOPATHY Status: Acute Comment: likley due to seizures and hypoglycemia (5) Chronic obstruct airways disease Status: Chronic (6) Chronic respiratory failure with hypoxia Code(s): J96.11 - CHRONIC RESPIRATORY FAILURE WITH HYPOXIA Status: Chronic (7) Diabetes type 2, uncontrolled Code(s): E11.65 - TYPE 2 DIABETES MELLITUS WITH HYPERGLYCEMIA Status: Chronic Qualifiers: Diabetes mellitus complication status: with hyperglycemia (8) Dyslipidemia Code(s): E78.5 - HYPERLIPIDEMIA, UNSPECIFIED Status: Chronic (9) Seizure disorder Code(s): G40.909 - EPILEPSY, UNSP, NOT INTRACTABLE, WITHOUT STATUS EPILEPTICUS Status: Chronic (10) Tobacco abuse Code(s): Z72.0 - TOBACCO USE Status: Chronic (11) Hypothermia Code(s): T68.XXXA - HYPOTHERMIA, INITIAL ENCOUNTER Status: Acute (12) H/O: CVA (cerebrovascular accident) Code(s): Z86.73 - PRSNL HX OF TIA (TIA), AND CEREB INFRC W/O RESID DEFICITS Status: Chronic Comment: on ASA,Plavix,statin - Plan plan discussed w/ family, continue antibiotics, PT/OT, social worker delinquency prevention, respiratory therapy, incentive spirometry, out of bed/ambulate, DVT proph w/SCDs pt still seems post -ictal but improving. cont IV Keppra.cont MACHINE LOADER eval -: cont empiric ABx. all Cx negative so far.? Aspiration PNA -: cont supportive care. -: PCT helping w multiple socila issues regarding family MPOA -: am labs. WBC treding down towards normal * . Review of Systems - Review of Systems Other: says he feels fine but can not be completed due to still some confusion - Medications/Allergies Allergies/Adverse Reactions: Allergies Allergy/AdvReac Type Severity Reaction Status Date / Time morphine Allergy Verified 10/15/16 23:44 Penicillins Allergy Verified 12/09/16 15:46 Medications: Current Medications Acetaminophen (Tylenol) 650 mg PO Q4H PRN PRN Reason: Headache/Fever or Pain Al Hydroxide/Mg Hydroxide (Maalox) 30 ml PO Q6H PRN PRN Reason: Heartburn or Indigestion Albuterol/Ipratropium (Duoneb) 3 ml NEB [id number] PRN PRN Reason: SOB &/or Wheezing Aspirin (Aspirin Chewable) 81 mg PO DAILY [facility] Last Admin: 12/11/16 07:36 Dose: Not Given Atorvastatin Calcium (Lipitor) 40 mg PO HS [facility] Last Admin: 12/10/16 20:35 Dose: Not Given Calcium Carbonate (Tums) 1,000 mg PO Q4H PRN PRN Reason: Heartburn or Indigestion Clopidogrel Bisulfate (Plavix) 75 mg PO DAILY [facility] Last Admin: 12/11/16 07:36 Dose: Not Given Dextrose/Water (Dextrose 50%) 25 gm SLOW IVP PRN PRN PRN Reason: Hypoglycemia Enoxaparin Sodium (Lovenox) 40 mg SC 0900 [facility] Last Admin: 12/11/16 08:37 Dose: 40 mg Famotidine (Pepcid) 20 mg SLOW IVP Q12HR [facility] Last Admin: 12/11/16 07:36 Dose: Not Given Fenofibrate (Tricor) 145 mg PO DAILY [facility] Last Admin: 12/11/16 07:37 Dose: Not Given Gabapentin (Neurontin) 1,200 mg PO TID [facility] Last Admin: 12/11/16 07:37 Dose: Not Given Glucagon (Glucagon) 1 mg IM PRN PRN PRN Reason: Hypoglycemia Guaifenesin (Robitussin Sf) 200 mg PO Q4H PRN PRN Reason: Cough Hydralazine HCl (Apresoline) 10 mg SLOW IVP Q4H PRN PRN Reason: Systolic BP > 180 Last Admin: 12/11/16 09:25 Dose: 10 mg Cefepime HCl 2 gm/ Sodium (Chloride) 100 mls @ 200 mls/hr IVPB Q12HR [facility] Last Admin: 12/11/16 08:33 Dose: 100 mls Dextrose/Water (D5w) 1,000 mls @ 0 mls/hr IV .Q0M PRN; As Directed PRN Reason: Hypoglycemia Levofloxacin 500 mg/ Device 100 mls @ 100 mls/hr IVPB Q24HR [facility] Last Admin: 12/10/16 17:07 Dose: 100 mls Levetiracetam 1,000 mg/ Device 100 mls @ 200 mls/hr IVPB BID [facility] Last Admin: 12/11/16 09:25 Dose: 100 mls Sodium Chloride (Normal Saline 0.9%) 1,000 mls @ 50 mls/hr IV .Q20H [facility] Last Admin: 12/11/16 11:38 Dose: 1,000 mls Vancomycin HCl 1.25 gm/ Sodium (Chloride) 250 mls @ 166.667 mls/hr IVPB 0300, 1500 [facility] Last Admin: 12/11/16 02:05 Dose: 250 mls Insulin Human Lispro (Humalog) 0 units SC .MILD SLIDING SCALE PRN PRN Reason: Mild Correctional Scale Labetalol HCl (Normodyne) 20 mg SLOW IVP Q4H PRN PRN Reason: Systolic BP > 180 Lisinopril (Zestril) 5 mg PO DAILY [facility] Last Admin: 12/11/16 07:37 Dose: Not Given Loperamide HCl (Imodium) 2 mg PO PRN PRN PRN Reason: Diarrhea/Loose Stools Loratadine (Claritin) 10 mg PO DAILYPRN PRN PRN Reason: Sinus Symptoms Magnesium Hydroxide (Milk Of Magnesium) 30 ml PO DAILYPRN PRN PRN Reason: Constipation Mineral Oil/White Petrolatum (Eucerin Cream) 0 gm TOP BIDPRN PRN PRN Reason: Dry Skin Miscellaneous Medication (Pharmacy To Dose) 1 each IVPB PRN PRN PRN Reason: Pharmacy to dose Mometasone Furoate/Formoterol Fumar (Dulera 200 Mcg/5 Mcg Inhaler) 2 puff INH BID-RT [facility] Last Admin: 12/10/16 19:35 Dose: 2 puff Nitroglycerin (Nitrostat) 0.4 mg SL Q5MIN PRN PRN Reason: Chest Pain Ondansetron HCl (Zofran Odt) 4 mg PO Q6H PRN PRN Reason: Nausea/Vomiting Ondansetron HCl (Zofran) 4 mg IVP Q6H PRN PRN Reason: Nausea/Vomiting Senna (Senokot) 2 tab PO HSPRN PRN PRN Reason: Constipation Sodium Chloride ([place] Nasal [place] 0.65%) 0 ml EA NARE QIDPRN PRN PRN Reason: Nasal Congestion
[2016-12-11] MEDS: Dextrose 5 %-0.45 % NaCl 1,000 ML IV SCH (14:10)
[2016-12-11] MEDS: Mometasone/Formoterol 120 PUFF INHALER INH SCH (18:22)
--- NOTE | 2016-12-11 19:27 | PRG ---
DATE OF SERVICE: 12/11/2016 SUBJECTIVE: Deepthi Zamarripa is more alert today. She follows me, walking around the room. She answer ed my questions quicker than yesterday. Her daughter is at the bedside, answered all of her questio ns. OBJECTIVE: VITAL SIGNS: She is afebrile, heart rate is 95, respiratory rate is 20, oximetry is 99%, blood pres sure is 179/59. LUNGS: Clear. HEART: Regular rhythm. ABDOMEN: Soft. LABORATORY DATA: White count 10.8, hemoglobin 9.7, platelets 395. Sodium 143, potassium 3.9, chloride 111, bicarbonate 21, BUN 24, creatinine 1.04, glucose 215. IMPRESSION: Prolonged hypoglycemia at home leading to an encephalopathy, this is slowly clearing. I doubt this is a cerebrovascular accident or seizure leading to her persistent encephalopathy. I d oubt she has an infectious process. I was seen in any records that seizure was witnessed just as she was found down at home, hypoglycemi c, would be more consistent with hypothermia and slow clearing of her encephalopathy lasting days. Given her clinical improvement, if she is stable overnight, she can be moved out of the intermediate care unit in the morning. Cultures have been reviewed again, blood cultures coag negative staph 1 is negative. I suspect this is a contaminant. I met with the daughter and answered all of her questions to her satisfaction.
[2016-12-11] MEDS: Atorvastatin Calcium 40 MG TAB PO SCH (20:28)
[2016-12-12 02:23] LABS: #Basophils 0.1 thou/uL (0.0-0.2); #Eosinphils 0.1 thou/uL (0.0-0.7); #Lymphocytes 1.4 thou/uL (1.20-3.40); #Monocytes 0.9 thou/uL (0.11-0.59); #Neutrophils 10.9 thou/uL (1.40-6.50); %Basophils 0.6 % (0.0-1.0); %Lymphocytes 10.1 % (21.0-51.0); %Monocytes 6.9 % (0.0-10.0); Hematocrit 31.1 % (36.0-47.0); Mean Platelet Volume 7.8 fL (7.4-10.4); Red Blood Cell (RBC) Count 3.29 mill/uL (4.20-5.40); White Blood Cell (WBC) Count 13.4 thou/uL (4.8-10.8)
[2016-12-12 02:33] LABS: Vancomycin, Trough 25.5 ug/mL
[2016-12-12 02:56] LABS: Anion Gap 17 mmol/L (10-20); BUN (Urea Nitrogen) 26 mg/dL (9.8-20.1); Calc. Creatinine Clearance 81 mL/min (70-130); Calcium 9.3 mg/dL (7.8-10.44); Carbon Dioxide 20 mmol/L (22-29); Chloride 110 mmol/L (98-107); Estimated GFR-MDRD 48
[2016-12-12] MEDS: HumaLOG 300 UNITS/3 ML VIAL SC PRN ×3 (06:52→20:40)
[2016-12-12] MEDS ORDERED: Enalaprilat Dihydrate 1.25 MG/ML VIAL SLOW IVP SCH ×2 (08:15→12:00)
[2016-12-12] MEDS: Enoxaparin Sodium 40 MG/0.4 ML SYRINGE SC SCH (08:33)
[2016-12-12] MEDS: Cefepime 2 GM in Sodium Chloride 0.9% 100 ML IVPB SCH ×2 (08:34→20:44)
[2016-12-12] MEDS: Clopidogrel Bisulfate 75 MG TAB PO SCH ×2 (08:34→12:05)
[2016-12-12] MEDS: Fenofibrate Nanocrystallized 145 MG TAB PO SCH ×2 (08:37→12:04)
[2016-12-12] MEDS: Gabapentin 400 MG CAP PO SCH ×4 (08:37→20:43)
[2016-12-12] MEDS: levETIRAcetam In NaCl (Iso-Os) 1,000 MG in Premix Bag 1 BAG IVPB SCH ×4 (08:38→20:46)
[2016-12-12] MEDS: Dextrose 5 %-0.45 % NaCl 1,000 ML IV SCH (08:44)
[2016-12-12] MEDS: Famotidine/PF 20 mg/2ml Vial SLOW IVP SCH ×2 (08:55→22:27)
[2016-12-12] MEDS: Mometasone/Formoterol 120 PUFF INHALER INH SCH ×3 (09:09→19:19)
--- NOTE | 2016-12-12 09:15 | PRG ---
DATE OF SERVICE: 12/12/2016 SUBJECTIVE: Ms. Zamarripa is much more alert today. Vital signs are remarkable just for intermittent hypertension. She is not getting her hypertensive medications because she has been swallowing, so I placed her on IV Vasotec. She is afebrile. She is much more alert. She answers questions quickly . OBJECTIVE: LUNGS: Clear. CARDIOVASCULAR: Regular rhythm. ABDOMEN: Soft. IMPRESSION: 1. Status post severe hypoglycemia. 2. Anemia, likely of chronic disease. 3. Chronic kidney disease. 4. Diabetes. 5. Deconditioning. 6. Obesity. PLAN: She is stable to move out of the Intermediate Care Unit to the stroke unit for close observat ion. Pulmonary will sign off.
[2016-12-12] MEDS ORDERED: Nystatin 500,000 UNITS/5 ML UDCUP SSW SCH ×2 (10:45)
[2016-12-12] MEDS ORDERED: Lidocaine 4% Cream 5 GM TUBE w/ Tegaderm TOP SCH (10:45)
--- NOTE | 2016-12-12 10:50 | PDOC.PN ---
- Subjective Encounter Start Date: 12/12/16 Encounter Start Time: 10:48 Subjective: more awake today.answers Q appropriately -: c/o leg pain. - Objective Resuscitation Status: Resuscitation Status FULL:Full Resuscitation MAR Reviewed: Yes Vital Signs & Weight: Vital Signs (12 hours) Temp Pulse Resp BP BP Pulse Ox 12/12/16 09:13 100 12/12/16 09:09 101 H 20 100 12/12/16 08:32 183/70 H 12/12/16 08:05 98.4 F 103 H 20 100 12/12/16 07:53 98.4 F 103 H 20 188/77 H 100 12/12/16 07:00 98.2 F 102 H 18 189/78 H 95 12/12/16 06:42 93 202/88 H 12/12/16 06:32 98.1 F 102 H 18 202/88 H 92 L 12/12/16 02:00 100 18 178/67 H 94 L Weight Admit Weight 209 lb 8 oz Weight 210 lb 1.6 oz I&O: 12/11/16 12/12/16 12/13/16 06:59 06:59 06:59 Intake Total 2742 75 Output Total 1850 650 Balance 892 -575 Result Diagrams: 12/12/16 02:11 12/12/16 02:10 Additional Labs: Accuchecks 12/12/16 12/12/16 12/12/16 08:04 06:42 00:42 POC Glucose 190 H 238 H 243 H 12/11/16 12/11/16 16:14 12:01 POC Glucose 215 H 224 H Microbiology 12/09/16 13:07 Venous blood - Left Arm Blood Culture - Final Coagulase Neg Staphylococcus 12/09/16 13:40 Venous blood - Left Hand Blood Culture - Preliminary Specimen has been received and culture in progress. No Growth to date. 12/09/16 13:40 Venous blood - Left Hand Blood Culture - Preliminary NO GROWTH AT 48 HOURS 12/09/16 13:07 Venous blood - Left Arm Blood Culture - Preliminary Coagulase Neg Staphylococcus Laboratory Tests 12/09/16 12/10/16 12/11/16 12:01 04:22 09:39 Carbon Dioxide 29 24 21 L Creatinine 0.99 1.11 H 1.04 12/12/16 02:10 Carbon Dioxide 20 L Creatinine 1.15 H Phys Exam - Physical Examination Constitutional: NAD sitting up,awake HEENT: PERRLA, moist MMs, sclera anicteric, oral pharynx no lesions oral thrush Neck: no nodes, no JVD, supple, full ROM Respiratory: no wheezing, no rales, no rhonchi, clear to auscultation bilateral Cardiovascular: RRR, no significant murmur Gastrointestinal: soft, non-tender, no distention, positive bowel sounds Musculoskeletal: no edema, pulses present Neurological: non-focal, normal sensation, moves all 4 limbs Psychiatric: normal affect, A&O x 3 Skin: no rash Dx/Plan (1) Status epilepticus Code(s): G40.901 - EPILEPSY, UNSP, NOT INTRACTABLE, WITH STATUS EPILEPTICUS Status: Resolved (2) Sepsis Code(s): A41.9 - SEPSIS, UNSPECIFIED ORGANISM Status: Suspected Comment: All Cx negative so far (3) RADHA (acute kidney injury) Code(s): N17.9 - ACUTE KIDNEY FAILURE, UNSPECIFIED Status: Acute (4) Hypoglycemia Code(s): E16.2 - HYPOGLYCEMIA, UNSPECIFIED Status: Resolved (5) Metabolic encephalopathy Code(s): G93.41 - METABOLIC ENCEPHALOPATHY Status: Acute Comment: likley due to seizures and hypoglycemia (6) Chronic obstruct airways disease Status: Chronic (7) Chronic respiratory failure with hypoxia Code(s): J96.11 - CHRONIC RESPIRATORY FAILURE WITH HYPOXIA Status: Chronic (8) Diabetes type 2, uncontrolled Code(s): E11.65 - TYPE 2 DIABETES MELLITUS WITH HYPERGLYCEMIA Status: Chronic Qualifiers: Diabetes mellitus complication status: with hyperglycemia (9) Dyslipidemia Code(s): E78.5 - HYPERLIPIDEMIA, UNSPECIFIED Status: Chronic (10) Seizure disorder Code(s): G40.909 - EPILEPSY, UNSP, NOT INTRACTABLE, WITHOUT STATUS EPILEPTICUS Status: Chronic (11) Tobacco abuse Code(s): Z72.0 - TOBACCO USE Status: Chronic (12) Hypothermia Code(s): T68.XXXA - HYPOTHERMIA, INITIAL ENCOUNTER Status: Acute (13) H/O: CVA (cerebrovascular accident) Code(s): Z86.73 - PRSNL HX OF TIA (TIA), AND CEREB INFRC W/O RESID DEFICITS Status: Chronic Comment: on ASA,Plavix,statin - Plan DVT proph w/SCDs Bp high today.started on IV vasotec.awaitng drapery hemmer automatic to clear for swollow -: start PO meds when safe to swollow. -: Clinically better. OK to transfer to stroke. -: add Lidoderm patch for chr pain for now. -: taper Abx when she can swollow.am labs * .Blood sugar better on D5 drip. monitor.ISS.start diet when safe Review of Systems - Review of Systems Musculoskeletal: Leg Pain Other: can not be reliably obtained as patient still slow in answers - Medications/Allergies Allergies/Adverse Reactions: Allergies Allergy/AdvReac Type Severity Reaction Status Date / Time morphine Allergy Verified 10/15/16 23:44 Penicillins Allergy Verified 12/09/16 15:46 Medications: Current Medications Acetaminophen (Tylenol) 650 mg PO Q4H PRN PRN Reason: Headache/Fever or Pain Al Hydroxide/Mg Hydroxide (Maalox) 30 ml PO Q6H PRN PRN Reason: Heartburn or Indigestion Albuterol/Ipratropium (Duoneb) 3 ml NEB [id number] PRN PRN Reason: SOB &/or Wheezing Aspirin (Aspirin Chewable) 81 mg PO DAILY [facility] Last Admin: 12/12/16 08:34 Dose: Not Given Atorvastatin Calcium (Lipitor) 40 mg PO HS [facility] Last Admin: 12/11/16 20:28 Dose: Not Given Benzonatate (Tessalon) 100 mg PO Q4H PRN PRN Reason: Cough Calcium Carbonate (Tums) 1,000 mg PO Q4H PRN PRN Reason: Heartburn or Indigestion Clopidogrel Bisulfate (Plavix) 75 mg PO DAILY [facility] Last Admin: 12/12/16 08:34 Dose: Not Given Dextrose/Water (Dextrose 50%) 25 gm SLOW IVP PRN PRN PRN Reason: Hypoglycemia Enalaprilat (Vasotec) 1.25 mg SLOW IVP Q6HR [facility] Enoxaparin Sodium (Lovenox) 40 mg SC 0900 [facility] Last Admin: 12/12/16 08:33 Dose: 40 mg Famotidine (Pepcid) 20 mg SLOW IVP Q12HR [facility] Last Admin: 12/12/16 08:55 Dose: 20 mg Fenofibrate (Tricor) 145 mg PO DAILY [facility] Last Admin: 12/12/16 08:37 Dose: Not Given Gabapentin (Neurontin) 1,200 mg PO TID [facility] Last Admin: 12/12/16 08:37 Dose: Not Given Glucagon (Glucagon) 1 mg IM PRN PRN PRN Reason: Hypoglycemia Guaifenesin (Robitussin Sf) 200 mg PO Q4H PRN PRN Reason: Cough Guaifenesin (Mucinex) 600 mg PO Q12HR [facility] Guaifenesin/Dextromethorphan (Mucinex Dm) 1 tab PO Q12HR [facility] Hydralazine HCl (Apresoline) 10 mg SLOW IVP Q4H PRN PRN Reason: Systolic BP > 180 Last Admin: 12/12/16 06:42 Dose: 10 mg Cefepime HCl 2 gm/ Sodium (Chloride) 100 mls @ 200 mls/hr IVPB Q12HR [facility] Last Admin: 12/12/16 08:34 Dose: 100 mls Dextrose/Water (D5w) 1,000 mls @ 0 mls/hr IV .Q0M PRN; As Directed PRN Reason: Hypoglycemia Levofloxacin 500 mg/ Device 100 mls @ 100 mls/hr IVPB Q24HR [facility] Last Admin: 12/11/16 16:17 Dose: 100 mls Levetiracetam 1,000 mg/ Device 100 mls @ 200 mls/hr IVPB BID [facility] Last Admin: 12/12/16 08:38 Dose: 100 mls Dextrose/Sodium Chloride (D5 1/2 Ns) 1,000 mls @ 50 mls/hr IV .Q20H [facility] Last Admin: 12/12/16 08:44 Dose: 1,000 mls Vancomycin HCl 1 gm/ Device 200 mls @ 200 mls/hr IVPB .PENDING LEVEL [facility] Insulin Human Lispro (Humalog) 0 units SC .MILD SLIDING SCALE PRN PRN Reason: Mild Correctional Scale Last Admin: 12/12/16 06:52 Dose: 4 unit Labetalol HCl (Normodyne) 20 mg SLOW IVP Q4H PRN PRN Reason: Systolic BP > 180 Lidocaine HCl (Lmx 4 Plus) 1 gm TOP ONE [facility] Stop: 12/12/16 14:00 Loperamide HCl (Imodium) 2 mg PO PRN PRN PRN Reason: Diarrhea/Loose Stools Loratadine (Claritin) 10 mg PO DAILYPRN PRN PRN Reason: Sinus Symptoms Magnesium Hydroxide (Milk Of Magnesium) 30 ml PO DAILYPRN PRN PRN Reason: Constipation Mineral Oil/White Petrolatum (Eucerin Cream) 0 gm TOP BIDPRN PRN PRN Reason: Dry Skin Miscellaneous Medication (Pharmacy To Dose) 1 each IVPB PRN PRN PRN Reason: Pharmacy to dose Mometasone Furoate/Formoterol Fumar (Dulera 200 Mcg/5 Mcg Inhaler) 2 puff INH BID-RT [facility] Last Admin: 12/12/16 09:15 Dose: Not Given Nitroglycerin (Nitrostat) 0.4 mg SL Q5MIN PRN PRN Reason: Chest Pain Nystatin (Mycostatin) 500,000 units SSW NOW [facility] Stop: 12/12/16 12:00 Nystatin (Mycostatin) 500,000 units SSW QID [facility] Ondansetron HCl (Zofran Odt) 4 mg PO Q6H PRN PRN Reason: Nausea/Vomiting Ondansetron HCl (Zofran) 4 mg IVP Q6H PRN PRN Reason: Nausea/Vomiting Senna (Senokot) 2 tab PO HSPRN PRN PRN Reason: Constipation Sodium Chloride ([place] Nasal [place] 0.65%) 0 ml EA NARE QIDPRN PRN PRN Reason: Nasal Congestion Sodium Chloride (Flush - Normal Saline) 10 ml IVF Q12HR [facility] Sodium Chloride (Flush - Normal Saline) 10 ml IVF PRN PRN PRN Reason: Saline Flush
[2016-12-12] MEDS: Benzonatate 100 MG CAP PO PRN (12:05)
[2016-12-12] MEDS: Nystatin 500,000 UNITS/5 ML UDCUP SSW SCH ×3 (12:22→20:43)
[2016-12-12] MEDS ORDERED: Acetaminophen 500 MG TAB PO PRN (12:22)
[2016-12-12] MEDS ORDERED: Lisinopril 5 MG TAB PO SCH (12:30)
[2016-12-12 14:04] VITALS: BMI 32.9
[2016-12-12 14:50] LABS: Vancomycin, Random 17.9 ug/mL (See Comment)
[2016-12-12] MEDS: Vancomycin HCl 1 GM in Premix Bag 1 BAG IVPB SCH (15:12)
[2016-12-12] MEDS: Atorvastatin Calcium 40 MG TAB PO SCH (20:43)
[2016-12-12] MEDS: guaiFENesin ER 600 MG TAB PO SCH (20:44)
[2016-12-12] MEDS: guaiFENesin/DM ER PO SCH (20:46)
[2016-12-13] MEDS: Vancomycin HCl 1 GM in Premix Bag 1 BAG IVPB SCH ×2 (03:32→14:26)
[2016-12-13] MEDS: HumaLOG 300 UNITS/3 ML VIAL SC PRN ×3 (04:41→21:38)
[2016-12-13 05:21] LABS: Anion Gap 10 mmol/L (10-20); BUN (Urea Nitrogen) 30 mg/dL (9.8-20.1); Calc. Creatinine Clearance 57 mL/min (70-130); Calcium 8.5 mg/dL (7.8-10.44); Carbon Dioxide 22 mmol/L (22-29); Chloride 107 mmol/L (98-107); Estimated GFR-MDRD 33
[2016-12-13] MEDS: Mometasone/Formoterol 120 PUFF INHALER INH SCH ×2 (07:48→19:18)
[2016-12-13] MEDS ORDERED: Azithromycin 250 MG TAB PO SCH (09:15)
[2016-12-13] MEDS: levETIRAcetam In NaCl (Iso-Os) 1,000 MG in Premix Bag 1 BAG IVPB SCH ×2 (09:24)
[2016-12-13] MEDS: Cefepime 2 GM in Sodium Chloride 0.9% 100 ML IVPB SCH (09:24)
[2016-12-13] MEDS ORDERED: levETIRAcetam 500 MG TAB PO SCH (09:30)
[2016-12-13] MEDS: Nystatin 500,000 UNITS/5 ML UDCUP SSW SCH ×4 (09:34→21:44)
[2016-12-13] MEDS: Famotidine/PF 20 mg/2ml Vial SLOW IVP SCH ×2 (09:38→21:40)
[2016-12-13] MEDS: Clopidogrel Bisulfate 75 MG TAB PO SCH (09:44)
[2016-12-13] MEDS: Gabapentin 400 MG CAP PO SCH ×3 (09:45→21:40)
[2016-12-13] MEDS: Fenofibrate Nanocrystallized 145 MG TAB PO SCH (09:45)
[2016-12-13] MEDS: guaiFENesin ER 600 MG TAB PO SCH ×2 (09:46→21:41)
[2016-12-13] MEDS: Lisinopril 5 MG TAB PO SCH (09:46)
[2016-12-13] MEDS: Enoxaparin Sodium 40 MG/0.4 ML SYRINGE SC SCH (09:47)
[2016-12-13] MEDS: guaiFENesin/DM ER PO SCH ×2 (09:50→23:23)
--- NOTE | 2016-12-13 12:00 | PDOC.PN ---
- Subjective Encounter Start Date: 12/13/16 Encounter Start Time: 11:59 - Objective Resuscitation Status: Resuscitation Status FULL:Full Resuscitation MAR Reviewed: Yes Vital Signs & Weight: Vital Signs (12 hours) Temp Pulse Resp BP BP Pulse Ox 12/13/16 11:25 98.5 F 89 18 196/75 H 100 12/13/16 09:46 84 121/64 12/13/16 08:00 98.7 F 84 28 H 98 12/13/16 07:53 98 12/13/16 07:48 84 28 H 98 12/13/16 07:33 98.7 F 79 16 121/64 96 12/13/16 03:55 98.2 F 88 24 H 148/66 H 94 L 12/13/16 00:55 97 Weight Admit Weight 209 lb 8 oz Weight 210 lb 1.6 oz I&O: 12/12/16 12/13/16 12/14/16 06:59 06:59 06:59 Intake Total 75 1260 Output Total 650 110 Balance -575 1150 Result Diagrams: 12/12/16 02:11 12/13/16 04:40 Additional Labs: Accuchecks 12/13/16 12/13/16 12/13/16 11:02 04:10 01:17 POC Glucose 294 H 266 H 136 H 12/12/16 12/12/16 12/12/16 20:23 17:19 11:51 POC Glucose 318 H 239 H 220 H Laboratory Tests 12/09/16 12/10/16 12/11/16 12:01 04:22 09:39 Creatinine 0.99 1.11 H 1.04 12/12/16 12/13/16 02:10 04:40 Creatinine 1.15 H 1.62 H Phys Exam - Physical Examination Constitutional: NAD walking in the room from shower HEENT: PERRLA, moist MMs, sclera anicteric, oral pharynx no lesions Neck: no nodes, no JVD, supple, full ROM Respiratory: no wheezing, no rales, no rhonchi, clear to auscultation bilateral Cardiovascular: RRR, no significant murmur Gastrointestinal: soft, non-tender, no distention, positive bowel sounds Musculoskeletal: no edema, pulses present Neurological: non-focal, normal sensation, moves all 4 limbs Psychiatric: normal affect, A&O x 3 Skin: no rash Dx/Plan (1) Status epilepticus Code(s): G40.901 - EPILEPSY, UNSP, NOT INTRACTABLE, WITH STATUS EPILEPTICUS Status: Resolved (2) Sepsis Code(s): A41.9 - SEPSIS, UNSPECIFIED ORGANISM Status: Suspected Comment: All Cx negative so far (3) RADHA (acute kidney injury) Code(s): N17.9 - ACUTE KIDNEY FAILURE, UNSPECIFIED Status: Acute (4) Hypoglycemia Code(s): E16.2 - HYPOGLYCEMIA, UNSPECIFIED Status: Resolved (5) Metabolic encephalopathy Code(s): G93.41 - METABOLIC ENCEPHALOPATHY Status: Resolved Comment: likley due to seizures and hypoglycemia (6) Chronic obstruct airways disease Status: Chronic (7) Chronic respiratory failure with hypoxia Code(s): J96.11 - CHRONIC RESPIRATORY FAILURE WITH HYPOXIA Status: Chronic (8) Diabetes type 2, uncontrolled Code(s): E11.65 - TYPE 2 DIABETES MELLITUS WITH HYPERGLYCEMIA Status: Chronic Qualifiers: Diabetes mellitus complication status: with hyperglycemia (9) Dyslipidemia Code(s): E78.5 - HYPERLIPIDEMIA, UNSPECIFIED Status: Chronic (10) Seizure disorder Code(s): G40.909 - EPILEPSY, UNSP, NOT INTRACTABLE, WITHOUT STATUS EPILEPTICUS Status: Chronic (11) Tobacco abuse Code(s): Z72.0 - TOBACCO USE Status: Chronic (12) Hypothermia Code(s): T68.XXXA - HYPOTHERMIA, INITIAL ENCOUNTER Status: Resolved (13) H/O: CVA (cerebrovascular accident) Code(s): Z86.73 - PRSNL HX OF TIA (TIA), AND CEREB INFRC W/O RESID DEFICITS Status: Chronic Comment: on ASA,Plavix,statin - Plan continue antibiotics, PT/OT, social media intern, out of bed/ambulate, DVT proph w/ SCDs DC IV ABx.Po Azithromycin.all Cx negative.Pt afebrile.sepsis ruled out -: restart IVF as Cr worsening w low sodium indication dehydration. -: Rehab eval.hemodynamically stable -: change IV Keppra to Po. -: DC when arranged to rehab Vs SNU.Pt updated & agreeable * . Review of Systems - Review of Systems Constitutional: Weakness. negative: Fever, Chills, Sweats, Malaise, Other Respiratory: negative: Cough, Dry, Shortness of Breath, Hemoptysis, SOB with Excertion, Pleuritic Pain, Sputum, Wheezing Cardiovascular: negative: Chest Pain, Palpitations, Orthopnea, Paroxysmal Noc. Dyspnea, Edema, Light Headedness, Other Gastrointestinal: negative: Nausea, Vomiting, Abdominal Pain, Diarrhea, Constipation, Melena, Hematochezia, Other Genitourinary: negative: Dysuria, Frequency, Incontinence, Hematuria, Retention , Other Musculoskeletal: negative: Neck Pain, Shoulder Pain, Arm Pain, Back Pain, Hand Pain, Leg Pain, Foot Pain, Other Skin: negative: Rash, Lesions, Deyvi, Bruising, Other Neurological: negative: Weakness, Numbness, Incoordination, Change in Speech, Confusion, Seizures, Other - Medications/Allergies Allergies/Adverse Reactions: Allergies Allergy/AdvReac Type Severity Reaction Status Date / Time morphine Allergy Verified 10/15/16 23:44 Penicillins Allergy Verified 12/09/16 15:46 Medications: Current Medications Acetaminophen (Tylenol) 650 mg PO Q4H PRN PRN Reason: Headache/Fever or Pain Last Admin: 12/12/16 12:03 Dose: 650 mg Acetaminophen (Tylenol) 500 mg PO Q4H PRN PRN Reason: Pain Al Hydroxide/Mg Hydroxide (Maalox) 30 ml PO Q6H PRN PRN Reason: Heartburn or Indigestion Albuterol/Ipratropium (Duoneb) 3 ml NEB [id number] PRN PRN Reason: SOB &/or Wheezing Aspirin (Aspirin Chewable) 81 mg PO DAILY [facility] Last Admin: 12/13/16 09:43 Dose: 81 mg Atorvastatin Calcium (Lipitor) 40 mg PO HS [facility] Last Admin: 12/12/16 20:43 Dose: 40 mg Azithromycin (Zithromax) 250 mg PO DAILY [facility] Stop: 12/17/16 09:01 Benzonatate (Tessalon) 100 mg PO Q4H PRN PRN Reason: Cough Last Admin: 12/12/16 12:05 Dose: 100 mg Calcium Carbonate (Tums) 1,000 mg PO Q4H PRN PRN Reason: Heartburn or Indigestion Clopidogrel Bisulfate (Plavix) 75 mg PO DAILY [facility] Last Admin: 12/13/16 09:44 Dose: 75 mg Dextrose/Water (Dextrose 50%) 25 gm SLOW IVP PRN PRN PRN Reason: Hypoglycemia Enoxaparin Sodium (Lovenox) 40 mg SC 0900 [facility] Last Admin: 12/13/16 09:47 Dose: 40 mg Famotidine (Pepcid) 20 mg SLOW IVP Q12HR [facility] Last Admin: 12/13/16 09:38 Dose: 20 mg Fenofibrate (Tricor) 145 mg PO DAILY [facility] Last Admin: 12/13/16 09:45 Dose: 145 mg Gabapentin (Neurontin) 1,200 mg PO TID [facility] Last Admin: 12/13/16 09:45 Dose: 1,200 mg Glucagon (Glucagon) 1 mg IM PRN PRN PRN Reason: Hypoglycemia Guaifenesin (Robitussin Sf) 200 mg PO Q4H PRN PRN Reason: Cough Guaifenesin (Mucinex) 600 mg PO Q12HR [facility] Last Admin: 12/13/16 09:46 Dose: 600 mg Guaifenesin/Dextromethorphan (Mucinex Dm) 1 tab PO Q12HR [facility] Last Admin: 12/13/16 09:50 Dose: Not Given Hydralazine HCl (Apresoline) 10 mg SLOW IVP Q4H PRN PRN Reason: Systolic BP > 180 Last Admin: 12/12/16 06:42 Dose: 10 mg Dextrose/Water (D5w) 1,000 mls @ 0 mls/hr IV .Q0M PRN; As Directed PRN Reason: Hypoglycemia Vancomycin HCl 1 gm/ Device 200 mls @ 200 mls/hr IVPB 0300,1500 [facility] Last Admin: 12/13/16 03:32 Dose: 200 mls Sodium Chloride (Normal Saline 0.9%) 1,000 mls @ 75 mls/hr IV .[id number] [facility] Insulin Human Lispro (Humalog) 0 units SC .MILD SLIDING SCALE PRN PRN Reason: Mild Correctional Scale Last Admin: 12/13/16 04:41 Dose: 6 unit Labetalol HCl (Normodyne) 20 mg SLOW IVP Q4H PRN PRN Reason: Systolic BP > 180 Levetiracetam (Keppra) 1,000 mg PO BID [facility] Lisinopril (Zestril) 5 mg PO DAILY [facility] Last Admin: 12/13/16 09:46 Dose: 5 mg Loperamide HCl (Imodium) 2 mg PO PRN PRN PRN Reason: Diarrhea/Loose Stools Loratadine (Claritin) 10 mg PO DAILYPRN PRN PRN Reason: Sinus Symptoms Magnesium Hydroxide (Milk Of Magnesium) 30 ml PO DAILYPRN PRN PRN Reason: Constipation Mineral Oil/White Petrolatum (Eucerin Cream) 0 gm TOP BIDPRN PRN PRN Reason: Dry Skin Miscellaneous Medication (Pharmacy To Dose) 1 each IVPB PRN PRN PRN Reason: Pharmacy to dose Mometasone Furoate/Formoterol Fumar (Dulera 200 Mcg/5 Mcg Inhaler) 2 puff INH BID-RT [facility] Last Admin: 12/13/16 07:48 Dose: 2 puff Nicotine (Nicoderm Patch) 14 mg TOP Q24HR [facility] Nitroglycerin (Nitrostat) 0.4 mg SL Q5MIN PRN PRN Reason: Chest Pain Nystatin (Mycostatin) 500,000 units SSW QID [facility] Last Admin: 12/13/16 09:34 Dose: 500,000 units Ondansetron HCl (Zofran Odt) 4 mg PO Q6H PRN PRN Reason: Nausea/Vomiting Ondansetron HCl (Zofran) 4 mg IVP Q6H PRN PRN Reason: Nausea/Vomiting Senna (Senokot) 2 tab PO HSPRN PRN PRN Reason: Constipation Sodium Chloride ([place] Nasal [place] 0.65%) 0 ml EA NARE QIDPRN PRN PRN Reason: Nasal Congestion Sodium Chloride (Flush - Normal Saline) 10 ml IVF Q12HR [facility] Last Admin: 12/13/16 09:39 Dose: 10 ml Sodium Chloride (Flush - Normal Saline) 10 ml IVF PRN PRN PRN Reason: Saline Flush
[2016-12-13] MEDS: Nicotine 14 MG PATCH TOP SCH (12:22)
[2016-12-13] MEDS: Sodium Chloride 0.9% 1,000 ML IV SCH ×2 (12:26→23:50)
[2016-12-13] MEDS: Atorvastatin Calcium 40 MG TAB PO SCH (21:41)
[2016-12-13] MEDS: levETIRAcetam 500 MG TAB PO SCH (21:41)
[2016-12-14] MEDS: HumaLOG 300 UNITS/3 ML VIAL SC PRN ×5 (00:02→21:27)
[2016-12-14] MEDS: Benzonatate 100 MG CAP PO PRN (02:06)
[2016-12-14] MEDS: Vancomycin HCl 1 GM in Premix Bag 1 BAG IVPB SCH (02:06)
[2016-12-14 03:56] LABS: Vancomycin, Trough 31.2 ug/mL
[2016-12-14 05:05] LABS: Anion Gap 9 mmol/L (10-20); BUN (Urea Nitrogen) 36 mg/dL (9.8-20.1); Calc. Creatinine Clearance 53 mL/min (70-130); Calcium 8.3 mg/dL (7.8-10.44); Carbon Dioxide 26 mmol/L (22-29); Chloride 105 mmol/L (98-107); Estimated GFR-MDRD 30
[2016-12-14] MEDS: Gabapentin 400 MG CAP PO SCH ×3 (09:05→21:21)
[2016-12-14] MEDS: Enoxaparin Sodium 40 MG/0.4 ML SYRINGE SC SCH (09:05)
[2016-12-14] MEDS ORDERED: Albuterol Sulfate 2.5 mg/3 ml Neb NEB PRN (09:05)
[2016-12-14] MEDS: Azithromycin 250 MG TAB PO SCH (09:05)
[2016-12-14] MEDS: Clopidogrel Bisulfate 75 MG TAB PO SCH (09:06)
[2016-12-14] MEDS: levETIRAcetam 500 MG TAB PO SCH ×2 (09:06→21:21)
[2016-12-14] MEDS: Fenofibrate Nanocrystallized 145 MG TAB PO SCH (09:06)
[2016-12-14] MEDS: Lisinopril 5 MG TAB PO SCH (09:06)
[2016-12-14] MEDS: Nystatin 500,000 UNITS/5 ML UDCUP SSW SCH ×4 (09:07→21:21)
[2016-12-14] MEDS: Nicotine 14 MG PATCH TOP SCH (09:07)
[2016-12-14] MEDS: Famotidine/PF 20 mg/2ml Vial SLOW IVP SCH (09:21)
[2016-12-14] MEDS: guaiFENesin ER 600 MG TAB PO SCH ×2 (09:21→21:21)
[2016-12-14] MEDS: Mometasone/Formoterol 120 PUFF INHALER INH SCH ×2 (09:21→19:43)
--- NOTE | 2016-12-14 09:58 | PDOC.PN ---
- Subjective Encounter Start Date: 12/14/16 Encounter Start Time: 08:45 -: old records requested/rev Pt seen and examined on rounds. chart reviewed in its entirety. This si my first visit with this patient. Family at bedside stated mental status at basmiguel, famil joey delatorre feels she is slurring speech, though bedside family said its just because she just woke up. A&O x 3 at present. complaining of indigestion overnight, cough when it was at it worst. No N/V/d/ C, no CP, no SOB above basline, no seizure activity noted. 10 point ROS performed and neg for all systems except as above asking to have tele removed. - Objective Resuscitation Status: Resuscitation Status FULL:Full Resuscitation MAR Reviewed: Yes Vital Signs & Weight: Vital Signs (12 hours) Temp Pulse Resp BP BP Pulse Ox 12/14/16 09:22 96 12/14/16 09:21 93 28 H 96 12/14/16 09:06 101 H 12/14/16 07:31 98.1 F 101 H 24 H 145/64 H 95 12/14/16 04:53 98.4 F 96 20 127/58 L 93 L 12/13/16 23:55 98.3 F 91 20 108/52 L 97 Weight Admit Weight 209 lb 8 oz Weight 210 lb 1.6 oz I&O: 12/13/16 12/14/16 12/15/16 06:59 06:59 06:59 Intake Total 1260 1020 Output Total 110 Balance 1150 1020 Result Diagrams: 12/12/16 02:11 12/14/16 04:15 Additional Labs: Accuchecks 12/14/16 12/14/16 12/13/16 08:25 05:05 23:57 POC Glucose 231 H 181 H 254 H 12/13/16 12/13/16 12/13/16 20:05 17:02 11:02 POC Glucose 320 H 348 H 294 H Radiology Reviewed by me: Yes EKG Reviewed by me: Yes Phys Exam - Physical Examination Constitutional: NAD HEENT: PERRLA, moist MMs, sclera anicteric, oral pharynx no lesions Neck: no nodes, no JVD, supple, full ROM Respiratory: no rales, no rhonchi high pitched end-expiratory wheezing heard. Cardiovascular: RRR, no significant murmur, no rub Gastrointestinal: soft, non-tender, no distention, positive bowel sounds Musculoskeletal: pulses present, edema present Neurological: non-focal, normal sensation, moves all 4 limbs Lymphatic: no nodes Psychiatric: normal affect, A&O x 3 Deviation from normal: grumpy Skin: no rash, normal turgor, cap refill <2 seconds Dx/Plan (1) RADHA (acute kidney injury) Code(s): N17.9 - ACUTE KIDNEY FAILURE, UNSPECIFIED Status: Acute Comment: started on IV fluids overnight, Cr up to 1.75. Will continue, repeat AM labs. vancomycin still on board, level elevated today. D/C'd completely. (2) Metabolic encephalopathy Code(s): G93.41 - METABOLIC ENCEPHALOPATHY Status: Resolved Comment: likley due to seizures and hypoglycemia (3) Status epilepticus Code(s): G40.901 - EPILEPSY, UNSP, NOT INTRACTABLE, WITH STATUS EPILEPTICUS Status: Resolved Comment: on Keppra 1g BID, seen by [facility] two days ago. (4) CVA (cerebral vascular accident) Code(s): I63.9 - CEREBRAL INFARCTION, UNSPECIFIED Status: Chronic Qualifiers: CVA mechanism: unspecified Qualified Code(s): I63.9 - Cerebral infarction, unspecified (5) Chronic obstruct airways disease Status: Chronic Qualifiers: COPD type: emphysema Emphysema type: unspecified Qualified Code(s): J43.9 - Emphysema, unspecified (6) Chronic respiratory failure with hypoxia Code(s): J96.11 - CHRONIC RESPIRATORY FAILURE WITH HYPOXIA Status: Chronic Comment: stabl howard 2L NC at present (7) Diabetes type 2, uncontrolled Code(s): E11.65 - TYPE 2 DIABETES MELLITUS WITH HYPERGLYCEMIA Status: Chronic Qualifiers: Diabetes mellitus complication status: with hyperglycemia Diabetes mellitus skilled nursing insulin use: without skilled nursing use Qualified Code(s): E11.65 - Type 2 diabetes mellitus with hyperglycemia (8) Seizure disorder Code(s): G40.909 - EPILEPSY, UNSP, NOT INTRACTABLE, WITHOUT STATUS EPILEPTICUS Status: Chronic (9) Sleep apnea Code(s): G47.30 - SLEEP APNEA, UNSPECIFIED Status: Chronic Qualifiers: Sleep apnea type: unspecified type Qualified Code(s): G47.30 - Sleep apnea , unspecified (10) Tobacco abuse Code(s): Z72.0 - TOBACCO USE Status: Chronic - Plan cont current plan of care, continue antibiotics, PT/OT, respiratory therapy * . Will change IV famotidine to once daily PPI, on Azithro, increased keppra at 1000mg BID. await AM labs, hopefully Cr will be improved, followup on neurology recommendations - Discharge Day Patient offered the following for tobacco cessation: nicotine replacement
[2016-12-14] MEDS: Sodium Chloride 0.9% 1,000 ML IV SCH (12:00)
[2016-12-14] MEDS: Labetalol HCl 100 MG/20 ML VIAL SLOW IVP PRN (12:10)
[2016-12-14] MEDS: Atorvastatin Calcium 40 MG TAB PO SCH (21:21)
[2016-12-15] MEDS: Sodium Chloride 0.9% 1,000 ML IV SCH ×2 (00:56→14:59)
[2016-12-15 01:27] LABS: Vancomycin, Random 24.7 ug/mL (See Comment)
[2016-12-15] MEDS ORDERED: Vancomycin HCl 1 GM in Premix Bag 1 BAG IVPB SCH (02:00)
[2016-12-15 05:13] LABS: #Eosinphils 0.3 thou/uL (0.0-0.7); #Lymphocytes 1.8 thou/uL (1.20-3.40); #Monocytes 0.6 thou/uL (0.11-0.59); #Neutrophils 6.1 thou/uL (1.40-6.50); %Basophils 0.5 % (0.0-1.0); %Eosinophils 3.9 % (0.0-10.0); %Lymphocytes 19.9 % (21.0-51.0); %Monocytes 6.8 % (0.0-10.0); Hematocrit 28.6 % (36.0-47.0); Mean Platelet Volume 8.1 fL (7.4-10.4); Red Blood Cell (RBC) Count 3.04 mill/uL (4.20-5.40); White Blood Cell (WBC) Count 8.8 thou/uL (4.8-10.8)
[2016-12-15 05:33] LABS: Anion Gap 13 mmol/L (10-20); BUN (Urea Nitrogen) 44 mg/dL (9.8-20.1); Calc. Creatinine Clearance 55 mL/min (70-130); Calcium 8.6 mg/dL (7.8-10.44); Carbon Dioxide 24 mmol/L (22-29); Chloride 105 mmol/L (98-107); Estimated GFR-MDRD 32
[2016-12-15] MEDS: Mometasone/Formoterol 120 PUFF INHALER INH SCH ×2 (06:10→18:49)
[2016-12-15] MEDS: Lisinopril 5 MG TAB PO SCH (08:20)
[2016-12-15] MEDS: Enoxaparin Sodium 40 MG/0.4 ML SYRINGE SC SCH (08:20)
[2016-12-15] MEDS: Fenofibrate Nanocrystallized 145 MG TAB PO SCH (08:21)
[2016-12-15] MEDS: Clopidogrel Bisulfate 75 MG TAB PO SCH (08:21)
[2016-12-15] MEDS: guaiFENesin ER 600 MG TAB PO SCH ×2 (08:21→21:44)
[2016-12-15] MEDS: Azithromycin 250 MG TAB PO SCH (08:21)
[2016-12-15] MEDS: Gabapentin 400 MG CAP PO SCH ×3 (08:22→21:43)
[2016-12-15] MEDS: levETIRAcetam 500 MG TAB PO SCH ×2 (08:22→21:43)
[2016-12-15] MEDS: Nicotine 14 MG PATCH TOP SCH (08:22)
[2016-12-15] MEDS: Nystatin 500,000 UNITS/5 ML UDCUP SSW SCH ×4 (08:23→21:44)
[2016-12-15] MEDS: HumaLOG 300 UNITS/3 ML VIAL SC PRN ×3 (08:41→21:41)
[2016-12-15] MEDS: Labetalol HCl 100 MG/20 ML VIAL SLOW IVP PRN (08:41)
--- NOTE | 2016-12-15 09:57 | PDOC.PN ---
- Subjective Encounter Start Date: 12/15/16 Encounter Start Time: 09:00 states she is short of breathe at this moment. denies cough or chest pain. no acute night events - Objective Resuscitation Status: Resuscitation Status FULL:Full Resuscitation Vital Signs & Weight: Vital Signs (12 hours) Temp Pulse Resp BP BP Pulse Ox 12/15/16 08:41 100 190/100 H 12/15/16 08:30 100 22 H 90 L 12/15/16 08:20 115 H 192/100 H 12/15/16 08:00 98.3 F 115 H 24 H 192/100 H 88 L 12/15/16 04:17 98.4 F 102 H 20 166/70 H 90 L Weight Admit Weight 209 lb 8 oz Weight 210 lb 1.6 oz I&O: 12/14/16 12/15/16 12/16/16 06:59 06:59 06:59 Intake Total 1020 3279 Balance 1020 3279 Result Diagrams: 12/15/16 04:32 12/15/16 04:32 Additional Labs: Accuchecks 12/15/16 12/15/16 12/14/16 08:35 04:15 21:19 POC Glucose 339 H 246 H 268 H 12/14/16 12/14/16 15:34 11:32 POC Glucose 276 H 286 H Phys Exam - Physical Examination looked uncomfortable HEENT: PERRLA, moist MMs, sclera anicteric Neck: no nodes, no JVD, supple Respiratory: no rales, no rhonchi, wheezing present (significant wheezing present ) Cardiovascular: RRR, no significant murmur Gastrointestinal: soft, non-tender, positive bowel sounds Musculoskeletal: pulses present Neurological: non-focal, moves all 4 limbs Psychiatric: normal affect, A&O x 3 Dx/Plan (1) Hypoglycemia Code(s): E16.2 - HYPOGLYCEMIA, UNSPECIFIED Status: Resolved (2) Metabolic encephalopathy Code(s): G93.41 - METABOLIC ENCEPHALOPATHY Status: Resolved Comment: likley due to seizures and hypoglycemia (3) Status epilepticus Code(s): G40.901 - EPILEPSY, UNSP, NOT INTRACTABLE, WITH STATUS EPILEPTICUS Status: Resolved Comment: on Keppra 1g BID, seen by [facility] two days ago. (4) Chronic obstruct airways disease Status: Chronic Qualifiers: COPD type: emphysema Emphysema type: unspecified Qualified Code(s): J43.9 - Emphysema, unspecified (5) Chronic respiratory failure with hypoxia Code(s): J96.11 - CHRONIC RESPIRATORY FAILURE WITH HYPOXIA Status: Chronic Comment: sarah howard 2L NC at present - Plan cont current plan of care, plan discussed w/ family, continue antibiotics, respiratory therapy * . continue current mgmt has signifiant exp. wheezing. will start solumedrol continue keppra at 1000BID follow with recs from neurology monitor creatnine. improving continue to monitor accordingly
[2016-12-15 11:16] LABS: Oxyhemoglobin 92.6 % (94.0-97.0); Sodium 138 mmol/L (135-148)
[2016-12-15 11:21] LABS: Mode RA; Modified Allen's Test POSITIVE; Vent NO
[2016-12-15] MEDS: Albuterol Sulfate 1.25 MG/3 ML NEB NEB SCH ×2 (13:02→18:51)
[2016-12-15 14:34] LABS: Troponin I 0.029 ng/mL (< 0.028)
[2016-12-15] MEDS: Atorvastatin Calcium 40 MG TAB PO SCH (21:43)
[2016-12-16] MEDS: HumaLOG 300 UNITS/3 ML VIAL SC PRN ×3 (00:38→12:29)
[2016-12-16] MEDS: Albuterol Sulfate 1.25 MG/3 ML NEB NEB SCH ×3 (01:13→13:19)
[2016-12-16] MEDS ORDERED: diphenhydrAMINE HCl/Zinc Acet 2% Cream 28.4 gm Tube TOP PRN (04:09)
[2016-12-16] MEDS: Sodium Chloride 0.9% 1,000 ML IV SCH ×2 (04:45→13:34)
[2016-12-16 05:15] LABS: Anion Gap 10 mmol/L (10-20); BUN (Urea Nitrogen) 44 mg/dL (9.8-20.1); Calc. Creatinine Clearance 69 mL/min (70-130); Calcium 8.7 mg/dL (7.8-10.44); Carbon Dioxide 23 mmol/L (22-29); Chloride 108 mmol/L (98-107); Estimated GFR-MDRD 41
[2016-12-16] MEDS: Mometasone/Formoterol 120 PUFF INHALER INH SCH (07:48)
[2016-12-16] MEDS: Fenofibrate Nanocrystallized 145 MG TAB PO SCH (08:18)
[2016-12-16] MEDS: Clopidogrel Bisulfate 75 MG TAB PO SCH (08:18)
[2016-12-16] MEDS: Lisinopril 5 MG TAB PO SCH (08:19)
[2016-12-16] MEDS: Azithromycin 250 MG TAB PO SCH (08:19)
[2016-12-16] MEDS: Gabapentin 400 MG CAP PO SCH ×2 (08:20→15:14)
[2016-12-16] MEDS: guaiFENesin ER 600 MG TAB PO SCH (08:20)
[2016-12-16] MEDS: levETIRAcetam 500 MG TAB PO SCH (08:20)
[2016-12-16] MEDS: Enoxaparin Sodium 40 MG/0.4 ML SYRINGE SC SCH (08:20)
[2016-12-16] MEDS: Nicotine 14 MG PATCH TOP SCH (08:22)
[2016-12-16] MEDS: Nystatin 500,000 UNITS/5 ML UDCUP SSW SCH ×3 (09:50→16:15)
--- NOTE | 2016-12-16 10:57 | PDOC.PN ---
- Subjective Encounter Start Date: 12/16/16 Encounter Start Time: 10:55 Subjective: feels much better.c/o some p[hlegmn. no cgest pain/SOB - Objective Resuscitation Status: Resuscitation Status FULL:Full Resuscitation MAR Reviewed: Yes Vital Signs & Weight: Vital Signs (12 hours) Temp Pulse Resp BP BP BP Pulse Ox 12/16/16 08:19 94 139/80 12/16/16 07:52 96 12/16/16 07:48 94 20 96 12/16/16 07:20 97.4 F L 92 16 139/80 98 12/16/16 04:00 97.6 F 80 20 117/64 95 12/16/16 01:22 94 L 12/16/16 01:13 95 12/16/16 00:17 98.3 F 91 20 143/62 H 93 L Weight Admit Weight 209 lb 8 oz Weight 210 lb 1.6 oz I&O: 12/15/16 12/16/16 12/17/16 06:59 06:59 06:59 Intake Total 3279 500 120 Balance 3279 500 120 Result Diagrams: 12/15/16 04:32 12/16/16 04:38 Additional Labs: Accuchecks 12/16/16 12/16/16 12/15/16 04:11 00:01 21:49 POC Glucose 199 H 273 H 411 H 12/15/16 12/15/16 12/15/16 21:35 16:52 11:38 POC Glucose 404 H 212 H 256 H 12/15/16 10:43 POC Glucose 311 H Microbiology 12/09/16 13:40 Venous blood - Left Hand Blood Culture - Final NO GROWTH IN 5 DAYS 12/09/16 13:07 Venous blood - Left Arm Blood Culture - Final Coagulase Neg Staphylococcus Laboratory Tests 12/09/16 12/10/16 12/11/16 12:01 04:22 09:39 Creatinine 0.99 1.11 H 1.04 12/12/16 12/13/16 12/14/16 02:10 04:40 04:15 Creatinine 1.15 H 1.62 H 1.75 H 12/15/16 12/16/16 04:32 04:38 Creatinine 1.67 H 1.33 H Phys Exam - Physical Examination Constitutional: NAD HEENT: PERRLA, moist MMs, sclera anicteric, oral pharynx no lesions Neck: no nodes, no JVD, supple, full ROM Respiratory: no wheezing, no rales, no rhonchi, clear to auscultation bilateral Cardiovascular: RRR, no significant murmur, no rub, gallop Gastrointestinal: soft, non-tender, no distention, positive bowel sounds Musculoskeletal: no edema, pulses present Neurological: non-focal, normal sensation, moves all 4 limbs Psychiatric: normal affect, A&O x 3 Dx/Plan (1) Status epilepticus Code(s): G40.901 - EPILEPSY, UNSP, NOT INTRACTABLE, WITH STATUS EPILEPTICUS Status: Resolved Comment: on Keppra 1g BID, seen by [place]. (2) Sepsis Code(s): A41.9 - SEPSIS, UNSPECIFIED ORGANISM Status: Suspected Comment: All Cx negative so far (3) RADHA (acute kidney injury) Code(s): N17.9 - ACUTE KIDNEY FAILURE, UNSPECIFIED Status: Acute Comment: started on IV fluids overnight, Cr improving. Will continue, repeat AM labs. Hold Metformin.Holding lasix (4) Hypoglycemia Code(s): E16.2 - HYPOGLYCEMIA, UNSPECIFIED Status: Resolved (5) Metabolic encephalopathy Code(s): G93.41 - METABOLIC ENCEPHALOPATHY Status: Resolved Comment: likley due to seizures and hypoglycemia (6) Chronic obstruct airways disease Status: Chronic Qualifiers: COPD type: emphysema Emphysema type: unspecified Qualified Code(s): J43.9 - Emphysema, unspecified (7) Chronic respiratory failure with hypoxia Code(s): J96.11 - CHRONIC RESPIRATORY FAILURE WITH HYPOXIA Status: Chronic Comment: stabl howard 2L NC at present (8) Diabetes type 2, uncontrolled Code(s): E11.65 - TYPE 2 DIABETES MELLITUS WITH HYPERGLYCEMIA Status: Chronic Qualifiers: Diabetes mellitus complication status: with hyperglycemia Diabetes mellitus mcfp insulin use: without mcfp use Qualified Code(s): E11.65 - Type 2 diabetes mellitus with hyperglycemia (9) Dyslipidemia Code(s): E78.5 - HYPERLIPIDEMIA, UNSPECIFIED Status: Chronic (10) Seizure disorder Code(s): G40.909 - EPILEPSY, UNSP, NOT INTRACTABLE, WITHOUT STATUS EPILEPTICUS Status: Chronic (11) Tobacco abuse Code(s): Z72.0 - TOBACCO USE Status: Chronic (12) Hypothermia Code(s): T68.XXXA - HYPOTHERMIA, INITIAL ENCOUNTER Status: Resolved (13) H/O: CVA (cerebrovascular accident) Code(s): Z86.73 - PRSNL HX OF TIA (TIA), AND CEREB INFRC W/O RESID DEFICITS Status: Chronic Comment: on ASA,Plavix,statin - Plan PT/OT, social welfare clerk, respiratory therapy, incentive spirometry, out of bed/ ambulate, DVT proph w/SCDs Pt stable and improved. OK to DC to rehab today. -: CXr as given some c/o sputum.change IV steroids to PO.on Nebs prn. -: cont to monitor Cr at Rehab .restart lasix in 1-2 days.hold metfromin -: will follow. Dc when accepeted * . Review of Systems - Review of Systems Constitutional: Weakness Respiratory: Sputum. negative: Cough, Dry, Shortness of Breath, Hemoptysis, SOB with Excertion, Pleuritic Pain, Wheezing Cardiovascular: negative: Chest Pain, Palpitations, Orthopnea, Paroxysmal Noc. Dyspnea, Edema, Light Headedness, Other Gastrointestinal: negative: Nausea, Vomiting, Abdominal Pain, Diarrhea, Constipation, Melena, Hematochezia, Other Genitourinary: negative: Dysuria, Frequency, Incontinence, Hematuria, Retention , Other Musculoskeletal: negative: Neck Pain, Shoulder Pain, Arm Pain, Back Pain, Hand Pain, Leg Pain, Foot Pain, Other Neurological: negative: Weakness, Numbness, Incoordination, Change in Speech, Confusion, Seizures, Other - Medications/Allergies Allergies/Adverse Reactions: Allergies Allergy/AdvReac Type Severity Reaction Status Date / Time morphine Allergy Verified 10/15/16 23:44 Penicillins Allergy Verified 12/09/16 15:46 Medications: Current Medications Acetaminophen (Tylenol) 650 mg PO Q4H PRN PRN Reason: Headache/Fever or Pain Last Admin: 12/12/16 12:03 Dose: 650 mg Acetaminophen (Tylenol) 500 mg PO Q4H PRN PRN Reason: Pain Al Hydroxide/Mg Hydroxide (Maalox) 30 ml PO Q6H PRN PRN Reason: Heartburn or Indigestion Last Admin: 12/14/16 01:33 Dose: 30 ml Albuterol Sulfate (Ventolin) 2.5 mg NEB Q2H PRN PRN Reason: Wheezing Albuterol Sulfate (Albuterol Sulfate) 1.25 mg NEB [id number] [facility] Last Admin: 12/16/16 07:48 Dose: 1.25 mg Albuterol/Ipratropium (Duoneb) 3 ml NEB [id number] PRN PRN Reason: SOB &/or Wheezing Last Admin: 12/15/16 08:30 Dose: 3 ml Aspirin (Aspirin Chewable) 81 mg PO DAILY [facility] Last Admin: 12/16/16 08:18 Dose: 81 mg Atorvastatin Calcium (Lipitor) 40 mg PO HS [facility] Last Admin: 12/15/16 21:43 Dose: 40 mg Azithromycin (Zithromax) 250 mg PO DAILY [facility] Stop: 12/17/16 09:01 Last Admin: 12/16/16 08:19 Dose: 250 mg Benzonatate (Tessalon) 100 mg PO Q4H PRN PRN Reason: Cough Last Admin: 12/14/16 02:06 Dose: 100 mg Calcium Carbonate (Tums) 1,000 mg PO Q4H PRN PRN Reason: Heartburn or Indigestion Clopidogrel Bisulfate (Plavix) 75 mg PO DAILY [facility] Last Admin: 12/16/16 08:18 Dose: 75 mg Dextrose/Water (Dextrose 50%) 25 gm SLOW IVP PRN PRN PRN Reason: Hypoglycemia Enoxaparin Sodium (Lovenox) 40 mg SC 0900 [facility] Last Admin: 12/16/16 08:20 Dose: 40 mg Fenofibrate (Tricor) 145 mg PO DAILY [facility] Last Admin: 12/16/16 08:18 Dose: 145 mg Gabapentin (Neurontin) 1,200 mg PO TID [facility] Last Admin: 12/16/16 08:20 Dose: 1,200 mg Glucagon (Glucagon) 1 mg IM PRN PRN PRN Reason: Hypoglycemia Guaifenesin (Robitussin Sf) 200 mg PO Q4H PRN PRN Reason: Cough Guaifenesin (Mucinex) 1,200 mg PO Q12HR [facility] Last Admin: 12/16/16 08:20 Dose: 1,200 mg Hydralazine HCl (Apresoline) 10 mg SLOW IVP Q4H PRN PRN Reason: Systolic BP > 180 Last Admin: 12/12/16 06:42 Dose: 10 mg Dextrose/Water (D5w) 1,000 mls @ 0 mls/hr IV .Q0M PRN; As Directed PRN Reason: Hypoglycemia Sodium Chloride (Normal Saline 0.9%) 1,000 mls @ 75 mls/hr IV .[id number] [facility] Last Admin: 12/16/16 04:45 Dose: Not Given Insulin Human Lispro (Humalog) 0 units SC .MILD SLIDING SCALE PRN PRN Reason: Mild Correctional Scale Last Admin: 12/16/16 04:53 Dose: 2 unit Labetalol HCl (Normodyne) 20 mg SLOW IVP Q4H PRN PRN Reason: Systolic BP > 180 Last Admin: 12/15/16 08:41 Dose: 20 mg Levetiracetam (Keppra) 1,000 mg PO BID [facility] Last Admin: 12/16/16 08:20 Dose: 1,000 mg Lisinopril (Zestril) 5 mg PO DAILY [facility] Last Admin: 12/16/16 08:19 Dose: 5 mg Loperamide HCl (Imodium) 2 mg PO PRN PRN PRN Reason: Diarrhea/Loose Stools Loratadine (Claritin) 10 mg PO DAILYPRN PRN PRN Reason: Sinus Symptoms Magnesium Hydroxide (Milk Of Magnesium) 30 ml PO DAILYPRN PRN PRN Reason: Constipation Mineral Oil/White Petrolatum (Eucerin Cream) 0 gm TOP BIDPRN PRN PRN Reason: Dry Skin Mometasone Furoate/Formoterol Fumar (Dulera 200 Mcg/5 Mcg Inhaler) 2 puff INH BID-RT [facility] Last Admin: 12/16/16 07:48 Dose: 2 puff Nicotine (Nicoderm Patch) 14 mg TOP Q24HR [facility] Last Admin: 12/16/16 08:22 Dose: 14 mg Nitroglycerin (Nitrostat) 0.4 mg SL Q5MIN PRN PRN Reason: Chest Pain Nystatin (Mycostatin) 500,000 units SSW QID [facility] Last Admin: 12/16/16 09:50 Dose: Not Given Ondansetron HCl (Zofran Odt) 4 mg PO Q6H PRN PRN Reason: Nausea/Vomiting Ondansetron HCl (Zofran) 4 mg IVP Q6H PRN PRN Reason: Nausea/Vomiting Pantoprazole Sodium (Protonix) 40 mg PO DAILY [facility] Last Admin: 12/16/16 08:19 Dose: 40 mg Prednisone (Prednisone) 40 mg PO QAM-WM [facility] Senna (Senokot) 2 tab PO HSPRN PRN PRN Reason: Constipation Sodium Chloride ([place] Nasal [place] 0.65%) 0 ml EA NARE QIDPRN PRN PRN Reason: Nasal Congestion Sodium Chloride (Flush - Normal Saline) 10 ml IVF Q12HR [facility] Last Admin: 12/16/16 09:51 Dose: Not Given Sodium Chloride (Flush - Normal Saline) 10 ml IVF PRN PRN PRN Reason: Saline Flush Zinc Acetate/Diphenhydramine (Benadryl 2% Cream) 0 gm TOP PRN PRN PRN Reason: FOR SKIN RASH
--- NOTE | 2016-12-16 13:06 | RAD ---
CHEST ONE VIEW: History: Pneumonia. Comparison: 12-09-16 FINDINGS: Cardiac silhouette is magnified and upper limits of normal in size. Pulmonary vasculature is now eng orged with reticular nodular interstitial prominence. Mediastinum is midline. There is no lobar cons olidation or evidence of pneumothorax. Electronic device overlies the left upper chest. IMPRESSION: Borderline cardiomegaly. Pulmonary vascular congestion. POS: [facility]
[2016-12-16 15:58] VITALS: TEMP 98.5
[2016-12-16] MEDS ORDERED: cloNIDine HCl 0.1 MG TAB PO SCH (17:00)
[2016-12-16 17:33] VITALS: BP 152/66
--- NOTE | 2016-12-16 20:50 | DIS ---
DATE OF ADMISSION: 12/09/2016 DATE OF DISCHARGE: 12/16/2016 CONDITION AT THE TIME OF DISCHARGE: Stable and improved. DISCHARGE DIAGNOSES: 1. Focal status epilepticus, resolved. 2. Acute encephalopathy secondary to #1, resolved. 3. Systemic inflammatory response syndrome with sepsis ruled out. 4. Hypertension. 5. Diabetes. 6. History of seizure and cerebrovascular accident. 7. Diabetic neuropathy. 8. Chronic obstructive pulmonary disease. 9. History of supraventricular tachycardia with ablation. DISCHARGE DISPOSITION: Inpatient rehabilitation to [facility]. DISCHARGE MEDICATIONS: Include aspirin 81 mg daily, prednisone tapering dose, Keppra 1000 mg p.o. b .i.d., this is an increase from 500 mg p.o. b.i.d., Mucinex 600 mg p.o. b.i.d., clonidine 0.1 mg p.o . b.i.d. p.r.n. for systolic blood pressure greater than 160, nicotine patch 14 mg daily, DuoNebs as needed, Tessalon Perles as needed, and Z-KALIE for 2 more doses. Hold lisinopril for now, Neurontin 1200 mg p.o. t.i.d., Humalog 20 units b.i.d., Levemir 65 units b.i.d., Lasix 20 mg daily, fenofibric acid 145 mg daily, Plavix 75 mg daily, Symbicort 1 puff b.i.d., Lipitor 40 mg daily. PRIMARY CARE PHYSICIAN: Shikha Lennon NP CONSULTATIONS: 1. Pulmonary Critical Care, Dr. Tatum. 2. Neurology, Dr. Rhoades. PROCEDURES DURING HOSPITAL Include 1. CT scan of the brain, which was negative for any CT evidence of acute intracranial process. 2. Chest x-ray on the day of admission and on the day of discharge. It shows borderline cardiomega ly and mild pulmonary vascular congestion. ADMISSION HISTORY: Ms. Zamarripa is a 56-year-old female with history of diabetes, hypertens ion, dyslipidemia, and seizure disorder, who presented to the emergency room after being found down by the family. Upon presentation, she was found to be hypoglycemic and hypothermic. There was conc pam of seizure as well. Her blood pressure was 188/78 upon presentation. Her EKG showed sinus tach ycardia. Labs showed leukocytosis with WBCs at 24.5 with a left shift and bandemia. ABG showed pH of 7.38 with a bicarbonate of 27, CO2 of 48 and oxygen of 65. Serum drug screen and urine drug scre en were negative. Cardiac enzymes were negative. She was admitted with a presumptive diagnosis of acute metabolic encephalopathy and she was admitted to [facility]. Critical care physicians as well as Neurology was consulted. Please see admission history and physi grupo for further details. HOSPITAL COURSE: The patient was seen by Neurology, Dr. Rhoades, who suggested that this might be s tatus epilepticus and she was started on IV Keppra after a loading dose. She was also seen by Dr. Dominick escobar from Pulmonary Critical Care as she was in the intermediate care unit. The patient had gradual improvement in her encephalopathy; and eventually, she was back to baseline. She did have some acu te kidney insufficiency which was treated with normal saline and it was improving. Her leukocytosis also improved. All the cultures remain negative. Initially, she was treated with IV antibiotics; but when the sepsis was ruled out; they were changed to oral. She was also given Solu-Medrol which was tapered to oral prednisone as well as nebulizers. She was evaluated by rehab and was accepted for inpatient rehabilitation. She was seen and examined prior to discharge. Please see hospitalist's progress note from today's date for further detail in cluding the [id number] interaction. At this time, she is hemodynamically stable and will be disch arged. She will resume her Lasix from tomorrow and will restart lisinopril as per the discretion of physician over at the rehab if her renal function is improving. BMP will be checked on a daily bas is or as per the discretion of rehabilitation M.D. Discharge plan was discussed with the patient who verbalized understanding. Total time spent in the discharge of this patient 32 minutes.
[2016-12-17] MEDS ORDERED: predniSONE 20 MG TAB PO SCH (08:00)
--- NOTE | 2016-12-18 06:49 | EKG ---
Test Reason : Blood Pressure : / mmHG Vent. Rate : 086 BPM Atrial Rate : 086 BPM P-R Int : 176 ms QRS Dur : 096 ms QT Int : 346 ms P-R-T Axes : 051 066 112 degrees QTc Int : 414 ms Normal sinus rhythm Normal ECG When compared with ECG of 09-DEC-2016 11:37, (Unconfirmed) ST no longer depressed in Anterior leads Nonspecific T wave abnormality no longer evident in Inferior leads Confirmed by IMTIAZ FELDMAN ([id number]) on 12/18/2016 6:48:57 AM Referred By: SEBASTIAN Confirmed By:IMTIAZ FELDMAN
== END 2016-12-16 17:32 | DRG 100 ==
LOC: ERS 11:30 → IMCU/EMU 13:21 → 2SE 12-12 13:44
PROVIDERS: ADMIT Internal Medicine; ATTEND Internal Medicine
DX: G40.101 Localization-related (focal) (partial) symptomatic epilepsy and epileptic syndromes with simple partial seizures, not intractable, with status epilepticus (principal); G93.41 Metabolic encephalopathy; R65.11 Systemic inflammatory response syndrome (SIRS) of non-infectious origin with acute organ dysfunction; J96.11 Chronic respiratory failure with hypoxia; T68.XXXA Hypothermia, initial encounter; N17.9 Acute kidney failure, unspecified; J96.12 Chronic respiratory failure with hypercapnia; I47.1 Supraventricular tachycardia; E11.42 Type 2 diabetes mellitus with diabetic polyneuropathy; E11.21 Type 2 diabetes mellitus with diabetic nephropathy; E11.649 Type 2 diabetes mellitus with hypoglycemia without coma; E88.09 Other disorders of plasma-protein metabolism, not elsewhere classified; Z79.4 Long term (current) use of insulin; Z86.73 Personal history of transient ischemic attack (TIA), and cerebral infarction without residual deficits; G40.909 Epilepsy, unspecified, not intractable, without status epilepticus; E78.5 Hyperlipidemia, unspecified; M19.90 Unspecified osteoarthritis, unspecified site; F17.210 Nicotine dependence, cigarettes, uncomplicated; F41.9 Anxiety disorder, unspecified; F32.9 Major depressive disorder, single episode, unspecified; Z88.5 Allergy status to narcotic agent; Z79.01 Long term (current) use of anticoagulants; E66.9 Obesity, unspecified; Z68.32 Body mass index [BMI] 32.0-32.9, adult; Z79.82 Long term (current) use of aspirin; D63.8 Anemia in other chronic diseases classified elsewhere; J43.9 Emphysema, unspecified; G47.30 Sleep apnea, unspecified; Z51.5 Encounter for palliative care; E11.22 Type 2 diabetes mellitus with diabetic chronic kidney disease; I12.9 Hypertensive chronic kidney disease with stage 1 through stage 4 chronic kidney disease, or unspecified chronic kidney disease; N18.9 Chronic kidney disease, unspecified
CPT/HCPCS: 36415; 36416; 51702; 70450; 71010; 80048; 80053; 80202; 80306; 80307; 81003; 81015; 82140; 82553; 82805; 83605; 83690; 83880; 84146; 84443; 84484; 85025; 85610; 85730; 87040; 87149; 93005; 93010; 94640; 94660; 94664; 96361; 96365; 96368; 96375; 96376; A4216; G8978-GP-CM; G8979-GP-CK; G8987-GO-CL; G8988-GO-CI; G8996-GN-CJ; G8996-GN-CM; G8997-GN-CH; G8997-GN-CJ; J0692; J1650; J1953; J1956; J2060; J2920; J3370; J7050; J7620; Q2009; S0028